=== PATIENT | female | born 1940 | race Caucasian/White ===

== ENCOUNTER → 2016-08-05 | Day surgery (SDC) | payer BC ==
[2016-07-28 11:35] VITALS: Ht 167.6 cm; Wt 65.9 kg
[~2016-08-05] VITALS: Ht 167.6 cm; Wt 65.9 kg
[~2016-08-05] MED LIST: 500ML BSS 0.3ML EPI 1:1000PF IRRIG ONE; ACETAMINOPHEN 325 MG TAB PO PRN; AMVISC PLUS 0.8ML SYRINGE INT OCU ONE; ATROPINE SULFATE 0.1 MG/ML 5ML SYR IV PRN; AcetaZOLAMIDE 250 MG TAB PO SCH; BETAXOLOL HCL 0.25% OP SUSP PER DROP CHARGE OPL SCH; BRIMONIDINE TART 0.2% OP SOLN PER DROP CHARGE ONE; BRIN3SUS OPB; BSS FLUSH ONE; CALC1TAB9 PO; CLOP1TAB15 PO; ENDOCOAT 0.85ML SYRINGE INT OCU ONE; ERGO1CAP41 PO; EpHEDrine SULFATE INJ 50 MG/ML AMP IV PRN; EpINEphrine INJ 1MG/ML AMP 1 MG/ML AMP ONE; IBAN150T PO; LACTATED RINGER'S 1000ML 500 ML IV SCH; LIDOCAINE 4% OP SOLN DROP CHARGE ONE; LIDOCAINE 4% OP SOLN DROP CHARGE OPL SCH; LIDOCAINE HCL 1% MPF 2 ML VIAL ONE; MAGN400T6 PO; MIDAZOLAM HCL 1 MG/ML 2ML VIAL ONE; MISCTAB30 PO; MIX: 4ML BSS 1ML EPI 1:1000 PF INSTIL ONE; MOXIFLOXACIN OPH SOLN PER DROP CHARGE ONE; OCUCOAT 1 ML SOLN IO ONE; POVIDONE-IODINE OP SOLN 30 ML BTL ONE; PRLSR20 PO; PROPARACAINE 0.5% OP SOLN PER DROP CHARGE OPL SCH; TAMO20TA47 PO; TOBRAMYCIN/DEXAMETHASONE OPH OINT PER APPLN CHARGE ONE; VITA1CAP3 PO
--- NOTE | 2016-08-05 08:58 | History & Physical Bridge - [place] ---
H&P Re-Evaluation Bridge Note: I have examined the patient, reviewed the History & Physical and in the interval since the performance of the History & Physical I have noted the following changes of clinical significance: No changes noted
[2016-08-05] MEDS: PHENYLEPHRINE HCL 2.5% OP SOLN PER DROP CHARGE OPL SCH ×2 (10:22→10:27)
[2016-08-05] MEDS: TROPICAMIDE 1% OP SOLN PER DROP CHARGE OPL SCH ×2 (10:23→10:28)
[2016-08-05] MEDS: CYCLOPENTOLATE HCL 1% OP SOLN PER DROP CHARGE OPL SCH ×2 (10:24→10:29)
[2016-08-05] MEDS: MOXIFLOXACIN OPH SOLN PER DROP CHARGE OPL SCH ×2 (10:25→10:35)
--- NOTE | 2016-08-05 11:10 | Discharge Instructions-SurgCtr ---
Discharge Instructions Visit Reason for Visit: Cataract Left Eye Discharge Discharge Diagnosis / Problem: lens implant left eye Discharge Goals Goal(s): Improve function Activity Recommendations Activity Limitations: resume your previous activity Lifting Limitations: no more than 10 pounds Exercise/Sports Limitations: gradually increase as tolerated May Resume Sexual Activity: when tolerated Shower/Bathe: tomorrow Driving or Machine Use: resume 1 day after discharge Anesthesia . Post Anesthesia Instructions: If you have had General Anesthesia or IV Sedation: * Do not drive today. * Resume driving when surgeon permits. * Do not make important decisions or sign legal documents today. * Call surgeon for: 1. Temperature elevations greater than 101 degrees F. 2. Uncontrollable pain. 3. Excessive bleeding. 4. Persistent nausea and vomiting. 5. Medication intolerance (nausea, vomiting or rash). * For nausea and vomiting use only clear liquids such as: tea, soda, bouillon until nausea subsides, then gradually increase diet as tolerated. * If you have any concerns or questions, call your surgeon's office. If physician is unavailable and it is an emergency, call 911 or go to the nearest emergency room. . Instructions / Follow-Up Instructions / Follow-Up ACTIVITY RECOMMENDATIONS: * Light activities. * Mild irritation and blurred vision are common for the first few days. * You may walk outside, read, watch television. * Redness around the white part of the eye is common. MEDICATIONS: Resume previous medications unless instructed otherwise by your surgeon. * Take white Diamox (Acetazolamide) tablet at 1 pm today. Start all eye drops at 1 pm today: * Eye drops (today and tomorrow): Prednisone - one drop in operative eye every 3 hours while awake Ofloxacin - one drop in operative eye every 3 hours while awake Continue Glaucoma drops in right eye as directed SPECIAL CARE INSTRUCTIONS: * Tape plastic shield over eye to sleep at night. Call your doctor at with any concerns or problems. FOLLOW UP VISIT: Follow-up with Dr Boyer at [place] office as scheduled. Diet Recommendations Home Diet: no limitations Procedures Procedures Performed: cataract extraction with lens implant Pending Studies Studies pending at discharge: no Medical Emergencies . Who to Call and When: Medical Emergencies: If at any time you feel your situation is an emergency, please call 911 immediately. . Non-Emergent Contact Non-Emergency issues call your: Warehouse Specialist Call Non-Emergent contact if: your pain is not controlled [phone] . . "Provider Documentation" section prepared by Seven Boyer.
--- NOTE | 2016-08-05 11:11 | [facility] Operative Report ---
Operative Report 1. PREOPERATIVE DIAGNOSIS: Senile nuclear cataract, left eye. 2. POSTOPERATIVE DIAGNOSIS: Senile nuclear cataract, left eye. 3. PROCEDURE: Phacoemulsification of left cataract with posterior chamber lens implant, type Bausch & Lomb, model MI60L, power +17.0 diopters. ANESTHESIA: Local standby. SURGEON: Dr. Boyer. COMPLICATIONS: None. OPERATING TIME: 10 minutes. 4. OPERATION AND FINDINGS: DESCRIPTION OF PROCEDURE: The left pupil was dilated. The anesthetic was administered using a topical technique. The left eye was prepped and draped. A speculum was placed. A clear corneal incision was formed. The chamber was filled with Amvisc Plus and Endocoat. Epinephrine solution was used. A paracentesis was placed. A capsulorrhexis was performed. The nucleus was hydrodissected. The lens was removed with phacoemulsification. Time was 3.01 seconds. The aspiration unit was used to remove the cortex. The capsule was filled with Amvisc Plus. The lens implant was folded and placed into the capsule. The incision was hydrated. The Amvisc was aspirated. The wound was secure. The chamber was deep. The pupil was round. TobraDex ointment and Vigamox solution were placed. The speculum was removed. The patient was returned to the Recovery Room in stable condition. I attest to the content of the Intraoperative Record and any orders documented therein. Any exceptions are noted below. The scribe's documentation has been prepared in my presence, under my direction and personally reviewed by me in its entirety. I confirm that the note above accurately reflects all work, treatment, procedures, and medical decision making performed by me. I personally scribed for Seven Boyer M.D. (DRE) on 08/05/16 at 11:11. Electronically submitted by Nicky Collier ([email or web address]).
[2016-08-05 11:21] VITALS: TEMP 36.5
--- NOTE | 2016-08-05 11:26 | Anesthesia Progress Nt - [facility] ---
Anesthesia Post Op Note Date & Time Aug 05, 2016 at 11:26 Vital Signs Pain Intensity: 0 Vital Signs Past 12 Hours Date Time Temp Pulse Resp B/P Pulse Ox O2 Delivery O2 Flow Rate FiO2 08/05/16 11:21 36.5 60 16 118/61 98 Room Air 08/05/16 10:15 36.5 69 18 137/74 96 Room Air Notes Mental Status: alert / awake / arousable, participated in evaluation Pt Amnestic to Procedure: Yes Nausea / Vomiting: adequately controlled Pain: adequately controlled Airway Patency, RR, SpO2: stable & adequate BP & HR: stable & adequate Hydration State: stable & adequate Anesthetic Complications: no major complications apparent
[2016-08-05 11:35] VITALS: BP 109/61; PULSE 65; O2SAT 97
== END | disposition home or self-care (01) ==
LOC: X.SURG 10:07
PROVIDERS: ATTEND Specialist
DX: H25.12 Age-related nuclear cataract, left eye (principal)

== ENCOUNTER → 2016-08-26 | Outpatient (CLI) | payer BC ==
[~2016-08-26] MED LIST changes: -500ML BSS 0.3ML EPI 1:1000PF IRRIG ONE; -ACETAMINOPHEN 325 MG TAB PO PRN; -AMVISC PLUS 0.8ML SYRINGE INT OCU ONE; -ATROPINE SULFATE 0.1 MG/ML 5ML SYR IV PRN; -AcetaZOLAMIDE 250 MG TAB PO SCH; -BETAXOLOL HCL 0.25% OP SUSP PER DROP CHARGE OPL SCH; -BRIMONIDINE TART 0.2% OP SOLN PER DROP CHARGE ONE; -BRIN3SUS OPB; -BSS FLUSH ONE; -ENDOCOAT 0.85ML SYRINGE INT OCU ONE; -EpHEDrine SULFATE INJ 50 MG/ML AMP IV PRN; -EpINEphrine INJ 1MG/ML AMP 1 MG/ML AMP ONE; -LACTATED RINGER'S 1000ML 500 ML IV SCH; -LIDOCAINE 4% OP SOLN DROP CHARGE ONE; -LIDOCAINE 4% OP SOLN DROP CHARGE OPL SCH; -LIDOCAINE HCL 1% MPF 2 ML VIAL ONE; -MIDAZOLAM HCL 1 MG/ML 2ML VIAL ONE; -MIX: 4ML BSS 1ML EPI 1:1000 PF INSTIL ONE; -MOXIFLOXACIN OPH SOLN PER DROP CHARGE ONE; -OCUCOAT 1 ML SOLN IO ONE; -POVIDONE-IODINE OP SOLN 30 ML BTL ONE; -PROPARACAINE 0.5% OP SOLN PER DROP CHARGE OPL SCH; -TOBRAMYCIN/DEXAMETHASONE OPH OINT PER APPLN CHARGE ONE
== END | disposition home or self-care (01) ==
LOC: C.PAPS 09:46
PROVIDERS: ATTEND Obstetrics & Gynecology
DX: Z12.4 Encounter for screening for malignant neoplasm of cervix (principal); R87.616 Satisfactory cervical smear but lacking transformation zone

== ENCOUNTER → 2016-08-26 | Day surgery (SDC) | payer BC ==
[2016-08-19 15:16] VITALS: Ht 167.6 cm; Wt 65.9 kg
[~2016-08-26] VITALS: Ht 167.6 cm; Wt 65.9 kg
[~2016-08-26] MED LIST changes: +500ML BSS 0.3ML EPI 1:1000PF IRRIG ONE; +ACETAMINOPHEN 325 MG TAB PO PRN; +AMVISC PLUS 0.8ML SYRINGE INT OCU ONE; +ATROPINE SULFATE 0.1 MG/ML 5ML SYR IV PRN; +AcetaZOLAMIDE 250 MG TAB PO SCH; +BETAXOLOL HCL 0.25% OP SUSP PER DROP CHARGE OPR SCH; +BRIMONIDINE TART 0.2% OP SOLN PER DROP CHARGE ONE; +BSS FLUSH ONE; +ENDOCOAT 0.85ML SYRINGE INT OCU ONE; +EpINEphrine INJ 1MG/ML AMP 1 MG/ML AMP ONE; +LACTATED RINGER'S 1000ML 500 ML IV SCH; +LIDOCAINE 4% OP SOLN DROP CHARGE ONE; +LIDOCAINE 4% OP SOLN DROP CHARGE OPR SCH; +LIDOCAINE HCL 1% MPF 2 ML VIAL ONE; +MIDAZOLAM HCL 1 MG/ML 2ML VIAL ONE; +MIX: 4ML BSS 1ML EPI 1:1000 PF INSTIL ONE; +MOXIFLOXACIN OPH SOLN PER DROP CHARGE ONE; +OCUCOAT 1 ML SOLN IO ONE; +POVIDONE-IODINE OP SOLN 30 ML BTL ONE; +PROPARACAINE 0.5% OP SOLN PER DROP CHARGE OPR SCH; +TOBRAMYCIN/DEXAMETHASONE OPH OINT PER APPLN CHARGE ONE
[2016-08-26] MEDS: PHENYLEPHRINE HCL 2.5% OP SOLN PER DROP CHARGE OPR SCH ×2 (06:39→06:44)
[2016-08-26] MEDS: TROPICAMIDE 1% OP SOLN PER DROP CHARGE OPR SCH ×2 (06:40→06:45)
[2016-08-26] MEDS: CYCLOPENTOLATE HCL 1% OP SOLN PER DROP CHARGE OPR SCH ×2 (06:41→06:46)
[2016-08-26] MEDS: MOXIFLOXACIN OPH SOLN PER DROP CHARGE OPR SCH ×2 (06:42→06:52)
--- NOTE | 2016-08-26 07:15 | Discharge Instructions-SurgCtr ---
Discharge Instructions Visit Reason for Visit: Cataract Right Eye Discharge Discharge Diagnosis / Problem: lens implant left lens Discharge Goals Goal(s): Improve function Activity Recommendations Activity Limitations: resume your previous activity Lifting Limitations: no more than 10 pounds Exercise/Sports Limitations: gradually increase as tolerated May Resume Sexual Activity: when tolerated Shower/Bathe: tomorrow Driving or Machine Use: resume 1 day after discharge Anesthesia . Post Anesthesia Instructions: If you have had General Anesthesia or IV Sedation: * Do not drive today. * Resume driving when surgeon permits. * Do not make important decisions or sign legal documents today. * Call surgeon for: 1. Temperature elevations greater than 101 degrees F. 2. Uncontrollable pain. 3. Excessive bleeding. 4. Persistent nausea and vomiting. 5. Medication intolerance (nausea, vomiting or rash). * For nausea and vomiting use only clear liquids such as: tea, soda, bouillon until nausea subsides, then gradually increase diet as tolerated. * If you have any concerns or questions, call your surgeon's office. If physician is unavailable and it is an emergency, call 911 or go to the nearest emergency room. . Instructions / Follow-Up Instructions / Follow-Up ACTIVITY RECOMMENDATIONS: * Light activities. * Mild irritation and blurred vision are common for the first few days. * You may walk outside, read, watch television. * Redness around the white part of the eye is common. MEDICATIONS: Resume previous medications unless instructed otherwise by your surgeon. * Take white Diamox (Acetazolamide) tablet at 1 pm today. Start all eye drops at 1 pm today: * Eye drops (today and tomorrow): Prednisone - one drop in operative eye every 3 hours while awake Ofloxacin - one drop in operative eye every 3 hours while awake SPECIAL CARE INSTRUCTIONS: * Tape plastic shield over eye to sleep at night. Call your doctor at with any concerns or problems. FOLLOW UP VISIT: Follow-up with Dr Boyer at [place] office as scheduled. Diet Recommendations Home Diet: no limitations Procedures Procedures Performed: Right Cataract Phacoemulsification With Intraocular Lens Implant Pending Studies Studies pending at discharge: no Medical Emergencies . Who to Call and When: Medical Emergencies: If at any time you feel your situation is an emergency, please call 911 immediately. . Non-Emergent Contact Non-Emergency issues call your: Texturing Machine Fixer Call Non-Emergent contact if: your pain is not controlled [phone] . . "Provider Documentation" section prepared by Seven Boyer.
[2016-08-26 07:17] VITALS: TEMP 36.9
--- NOTE | 2016-08-26 07:17 | [facility] Operative Report ---
Operative Report Date of Service Aug 26, 2016. Operative Report 1. PREOPERATIVE DIAGNOSIS: Senile nuclear cataract, righ eye. 2. POSTOPERATIVE DIAGNOSIS: Senile nuclear cataract, right eye. 3. PROCEDURE: Phacoemulsification of right cataract with posterior chamber lens implant, type Bausch & Lomb, model MI60L, power +17.0 diopters. ANESTHESIA: Local standby. SURGEON: Dr. Boyer. COMPLICATIONS: None. OPERATING TIME: 10 minutes. 4. OPERATION AND FINDINGS: DESCRIPTION OF PROCEDURE: The right pupil was dilated. The anesthetic was administered using a topical technique. The right eye was prepped and draped. A speculum was placed. A clear corneal incision was formed. The chamber was filled with Amvisc Plus and Endocoat. Epinephrine solution was used. A paracentesis was placed. A capsulorrhexis was performed. The nucleus was hydrodissected. The lens was removed with phacoemulsification. Time was 2.83 seconds. The aspiration unit was used to remove the cortex. The capsule was filled with Amvisc Plus. The lens implant was folded and placed into the capsule. The incision was hydrated. The Amvisc was aspirated. The wound was secure. The chamber was deep. The pupil was round. TobraDex ointment and Vigamox solution were placed. The speculum was removed. The patient was returned to the Recovery Room in stable condition. I attest to the content of the Intraoperative Record and any orders documented therein. Any exceptions are noted below. The scribe's documentation has been prepared in my presence, under my direction and personally reviewed by me in its entirety. I confirm that the note above accurately reflects all work, treatment, procedures, and medical decision making performed by me. I personally scribed for Seven Boyer M.D. (DRE) on 08/26/16 at 07:17. Electronically submitted by Nicky Collier ([email or web address]).
--- NOTE | 2016-08-26 07:58 | Anesthesia Progress Nt - [facility] ---
Anesthesia Post Op Note Date & Time Aug 26, 2016 at 07:57 Vital Signs Vital Signs Past 12 Hours Date Time Temp Pulse Resp B/P Pulse Ox O2 Delivery O2 Flow Rate FiO2 08/26/16 07:17 36.9 64 16 105/67 95 Room Air 08/26/16 06:26 36.5 77 16 120/64 95 Room Air Notes Mental Status: alert / awake / arousable, participated in evaluation Pt Amnestic to Procedure: Yes Nausea / Vomiting: adequately controlled Pain: adequately controlled Airway Patency, RR, SpO2: stable & adequate BP & HR: stable & adequate Hydration State: stable & adequate Anesthetic Complications: no major complications apparent
[2016-08-26 08:03] VITALS: BP 121/69; PULSE 61; O2SAT 97
== END | disposition home or self-care (01) ==
LOC: X.SURG 06:08
PROVIDERS: ATTEND Specialist
DX: H25.11 Age-related nuclear cataract, right eye (principal); M19.90 Unspecified osteoarthritis, unspecified site; Z98.42 Cataract extraction status, left eye; Z86.73 Personal history of transient ischemic attack (TIA), and cerebral infarction without residual deficits; Z79.02 Long term (current) use of antithrombotics/antiplatelets; Z12.4 Encounter for screening for malignant neoplasm of cervix; R87.616 Satisfactory cervical smear but lacking transformation zone

== ENCOUNTER → 2016-09-01 | Outpatient (CLI) | payer BC ==
[~2016-09-01] MED LIST changes: -500ML BSS 0.3ML EPI 1:1000PF IRRIG ONE; -ACETAMINOPHEN 325 MG TAB PO PRN; -AMVISC PLUS 0.8ML SYRINGE INT OCU ONE; -ATROPINE SULFATE 0.1 MG/ML 5ML SYR IV PRN; -AcetaZOLAMIDE 250 MG TAB PO SCH; -BETAXOLOL HCL 0.25% OP SUSP PER DROP CHARGE OPR SCH; -BRIMONIDINE TART 0.2% OP SOLN PER DROP CHARGE ONE; -BSS FLUSH ONE; -ENDOCOAT 0.85ML SYRINGE INT OCU ONE; -EpINEphrine INJ 1MG/ML AMP 1 MG/ML AMP ONE; -LACTATED RINGER'S 1000ML 500 ML IV SCH; -LIDOCAINE 4% OP SOLN DROP CHARGE ONE; -LIDOCAINE 4% OP SOLN DROP CHARGE OPR SCH; -LIDOCAINE HCL 1% MPF 2 ML VIAL ONE; -MIDAZOLAM HCL 1 MG/ML 2ML VIAL ONE; -MIX: 4ML BSS 1ML EPI 1:1000 PF INSTIL ONE; -MOXIFLOXACIN OPH SOLN PER DROP CHARGE ONE; -OCUCOAT 1 ML SOLN IO ONE; -POVIDONE-IODINE OP SOLN 30 ML BTL ONE; -PROPARACAINE 0.5% OP SOLN PER DROP CHARGE OPR SCH; -TOBRAMYCIN/DEXAMETHASONE OPH OINT PER APPLN CHARGE ONE
[2016-09-01 13:54] LABS: MEAN CELL VOLUME 89.4 fL (80-100); MEAN CORPUSCULAR HEMOGLOBIN 30.9 pg (25-34); MEAN CORPUSCULAR HGB CONC 34.5 g/dl (32-36); PLATELET COUNT 184 K/uL (130-400); RED BLOOD COUNT 4.92 M/uL (4.2-5.4)
[2016-09-01 14:01] LABS: ALT/SGPT 19 U/L (12-78); BLOOD UREA NITROGEN 25 mg/dl (7-18); BUN/CREATININE RATIO 31.1 (10-20); CALCIUM 8.6 mg/dl (8.5-10.1); CARBON DIOXIDE 27 mmol/L (21-32); CHLORIDE 106 mmol/L (98-107); GLUCOSE 95 mg/dl (70-99); SODIUM 141 mmol/L (136-145)
[2016-09-01 14:12] LABS: ALB/GLOB RATIO 1.1 (0.9-2); ALKALINE PHOSPHATASE 68 U/L (45-117); AST/SGOT 14 U/L (15-37); CHOLESTEROL 166 mg/dl (0-200); HDL CHOLESTEROL 56 mg/dl; LDL CHOLESTEROL CALCULATED 88 mg/dl; TRIGLYCERIDES 112 mg/dl (0-150); VERY LOW DENSITY LIPOPROT CALC 22 mg/dl
== END | disposition home or self-care (01) ==
LOC: C.LABBC 11:44
PROVIDERS: ATTEND Internal Medicine
DX: G45.9 Transient cerebral ischemic attack, unspecified (principal)

== ENCOUNTER → 2016-09-22 | Outpatient (CLI) | payer BC ==
[2014-09-11 13:00] VITALS: BP 110/72; PULSE 72
[~2016-09-22] MED LIST changes: -ERGO1CAP41 PO; +ERGO500011 PO; -TAMO20TA47 PO; +TAMO20TA9 PO
[2016-09-22 13:05] VITALS: BP 107/61; PULSE 65; TEMP 37; O2SAT 94
--- NOTE | 2016-09-22 16:39 | Radiation Oncology Follow-Up ---
Radiation Oncology Follow-Up Date of Visit Sep 22, 2016. Reason For Visit Annual follow-up Radiation Completion Date Left Mammosite - 01/26/14 Diagnosis (1) Breast cancer of upper-outer quadrant of left female breast Status: Resolved Onset Date: 12/20/2013 Histology Subtype: ductal Stage: l Permanent Comment: Abnormal left breast mammogram 11/17/2013 status post ultrasound-guided biopsy 12/20/2013 revealing invasive adenocarcinoma Estrogen receptor positive, progesterone receptor positive, and HER-2/oleg negative Status post lumpectomy and sentinel lymph node biopsy 12/16/2013 revealing infiltrating ductal carcinoma stage pT1c [id number] Status post completion of radiation therapy utilizing MammoSite therapy completed 01/26/2014 received 3400 cGy Status post MRI guided biopsy of the left breast 06/17/2016, benign Last Edited By: Dorcas Moore on Sep 22, 2016 16:30 Interim History She has noted no changes to her breasts. There've been no masses or tenderness no change of the axilla. She's had no swelling of her arm. She did have a MRI of both breasts 11/18/2015. This was given a category 3 probably benign. There was a stable 2 mm enhancing focus in the 9:30 anterior right breast which is probably benign. However longer stability as needed and therefore another follow-up rest MRI in 6 months was recommended. Continuation of annual screening mammogram was recommended. On 06/01/2016 she had recheck MRI of both breasts. This showed increasingly conspicuous subtle non-mass enhancement within the left breast anterior and slightly superior to the lumpectomy bed, extending towards the nipple over 3.6 cm, this could represent posttreatment change. However DCIS cannot be completely excluded and further evaluation with a left breast MRI guided biopsy was recommended. Stable 3 mm enhancing focus within the anterior 9:30 right breast that is unchanged for at least 1 year and most likely is benign. 2 years of stability are needed to confirm and pending benign pathology results the left breast at the time of MRI guided biopsy, another 12 month follow-up breast MRI as recommended. The MRI guided biopsy was carried out on 06/17/2016. This showed benign breast tissue. Negative for DCIS and invasive carcinoma. Case [id number]. Allergies Coded Allergies: Beta Adrenergic Blockers (Verified Allergy, Unknown, "BLACKED OUT", 08/26/16 ) Lactose Intolerance (Verified Allergy, Unknown, GI SYMPTOMS, 08/26/16) Morphine (Verified Adverse Reaction, Intermediate, GI SYMPTOMS, 08/26/16) Home Medications Scheduled Calcium Citrate-Vitamin D (Citracal + D3 Maximum), 1 TAB PO BID Clopidogrel (Plavix), 75 MG PO HS Ergocalciferol (Vitamin D 07868 Unit), 1 TAB PO WK Ibandronate Sodium (Boniva), 1 TAB PO MONTHLY Magnesium Oxide (Mag-Ox), 400 MG PO QAM Misc Natural Products (Osteo Bi-Flex Joint Shiel), 1 TAB PO BID Omeprazole (Prilosec), 20 MG PO QAM Tamoxifen (Nolvadex), 20 MG PO QAM Vitamin E (E1000), 1 CAP PO QAM Review of Systems Gastrointestinal: Symptoms: WNL Oral: Symptoms: No Problems Respiratory: Symptoms: WNL Urinary: Symptoms: WNL Skin: Symptoms: No Problems Breast: Right Upper Arm Measurement: 27.0 Right Mid Arm Measurement: 22.4 Right Wrist Measurement: 14.8 Left Upper Arm Measurement: 26.9 Left Mid Arm Measurement: 24.2 Left Wrist Measurement: 15.1 Arm Dominence: Left Patient Cosmetic Evaluation: Good Physical Exam Vital Signs Date Time Temp Pulse Resp B/P Pulse Ox O2 Delivery O2 Flow Rate FiO2 09/22/16 13:05 37.0 65 16 107/61 94 Pain: Pain Location: None Patient Pain Scale: 0 - 10 Initial Pain Intensity: 0.0 Fatigue: None General Appearance: no apparent distress Eyes: normal inspection, EOMI ENT: normal ENT inspection, hearing grossly normal Neck: no adenopathy, thyroid normal Respiratory/Chest: lungs clear, no respiratory distress, no accessory muscle use Breast: Breast examination reveals well-healed incision of the left breast. There is also a healed puncture wound above the incision line. There are no masses or tenderness and no axillary adenopathy. There are mild fibrous changes in the area of the incision. There are no skin retractions or nipple changes. There is no telangiectasia. Using the [place] score cosmesis she has a in excellent outcome. The right breast showed no masses or tenderness and no axillary adenopathy. Cardiovascular: regular rate, rhythm, no gallop, no murmur Abdomen: non tender, soft Extremities: no pedal edema Neurologic/Psychiatric: no motor/sensory deficits, alert, normal mood/affect Skin: warm/dry Lymphatic: no adenopathy Laboratory Studies Test 09/01/16 11:47 White Blood Count 6.70 K/uL (4.8-10.8) Red Blood Count 4.92 M/uL (4.2-5.4) Hemoglobin 15.2 g/dL (12.0-16.0) Hematocrit 44.0 % (37-47) Mean Corpuscular Volume 89.4 fL (80-100) Mean Corpuscular Hemoglobin 30.9 pg (25-34) Mean Corpuscular Hemoglobin Concent 34.5 g/dl (32-36) RDW Standard Deviation 40.1 fL (36.4-46.3) RDW Coefficient of Variation 12.4 % (11.5-14.5) Platelet Count 184 K/uL (130-400) Mean Platelet Volume 11.0 fL (7.4-10.4) Sodium Level 141 mmol/L (136-145) Potassium Level 4.0 mmol/L (3.5-5.1) Chloride Level 106 mmol/L (98-107) Carbon Dioxide Level 27 mmol/L (21-32) Anion Gap 8.0 mmol/L (3-11) Blood Urea Nitrogen 25 mg/dl (7-18) Creatinine 0.80 mg/dl (0.60-1.20) Estimated GFR () 83.6 Estimated GFR (Non- 72.1 BUN/Creatinine Ratio 31.1 (10-20) Random Glucose 95 mg/dl (70-99) Calcium Level 8.6 mg/dl (8.5-10.1) Total Bilirubin 0.3 mg/dl (0.2-1) Aspartate Amino Transferase (AST) 14 U/L (15-37) Alanine Aminotransferase (ALT) 19 U/L (12-78) Alkaline Phosphatase 68 U/L (45-117) Total Protein 7.0 gm/dl (6.4-8.2) Albumin 3.7 gm/dl (3.4-5.0) Globulin 3.3 gm/dl (2.5-4.0) Albumin/Globulin Ratio 1.1 (0.9-2) Triglycerides Level 112 mg/dl (0-150) Cholesterol Level 166 mg/dl (0-200) HDL Cholesterol 56 mg/dl LDL Cholesterol, Calculated 88 mg/dl VLDL Cholesterol, Calculated 22 mg/dl Cholesterol/HDL Ratio 3.0 Thyroid Stimulating Hormone (TSH) 1.610 uIu/ml (0.300-4.500) Additional Studies Mammography and MRIs as reviewed above. Assessment & Plan Plan: She'll be due for bilateral mammography in November. She'll be due for the recommended breast MRI in May. Orders were written and the studies were scheduled. Continue regular follow-up with Dr. Jean and her primary care physician. She continues on tamoxifen. We asked her to return to our office in 1 year. Total Time In Follow-Up I spent 20 minutes speaking to the patient performing examination. I spent 15 minutes reviewing information and completing this note. Copy To James Mahoney M.D.; Dixon Jean M.D.
== END | disposition home or self-care (01) ==
LOC: C.ONC 12:49
PROVIDERS: ATTEND Physician Assistant Medical
DX: Z08 Encounter for follow-up examination after completed treatment for malignant neoplasm (principal); Z92.3 Personal history of irradiation; Z85.3 Personal history of malignant neoplasm of breast

== ENCOUNTER → 2016-11-04 | Outpatient (CLI) | payer BC ==
--- NOTE | 2016-11-05 08:15 | MAMMOGRAPHY REPORT ---
BILATERAL DIGITAL DIAGNOSTIC MAMMOGRAM TOMOSYNTHESIS WITH CAD AND TARGETED LEFT ULTRASOUND: 7 CLINICAL HISTORY: 75-year-old woman with a personal history of left breast cancer status post breast conservation therapy with lumpectomy performed December 2013. She presents for annual bilateral mammog job as well as reports new pain and lump in the lateral left breast. The patient reports she had felt an "egg sized" area of thickening which she can no longer feel. TECHNIQUE: Bilateral CC and MLO 2-D digital and tomosynthesis images were obtained. Current study was also evaluated with a Computer Aided Detection (CAD) system. COMPARISON: Comparison is made to exams dated: 06/17/2016 mammogram, 09/26/2015 mammogram, 11/12/2014 mammogram, 04/30/2014 mammogram, 11/17/2013 mammogram, and 08/23/2012 mammogram - [facility]. BREAST COMPOSITION: The tissue of both breasts is heterogeneously dense, which may obscure small ma sses. FINDINGS: A truncal skin palpable marker overlies the upper outer middle one third of the left breas t, denoting the area of pain and thickening pointed out by the patient. There is expected data center solutions architect ural distortion in the upper outer posterior left breast, from prior lumpectomy. A stable metallic biopsy marker in the anterior subareolar left breast from prior benign MRI guided biopsy. No new alejo spicious mass, architectural distortion or cluster of microcalcifications is seen. Targeted ultrasound was performed throughout the lateral left breast in the areas of pain pointed ou t by the patient. She cannot feel the "egg sized" lump anymore to point out. there is a vertically oriented 7 x 2 cm ridge along the lateral left breast, 4 cm from the nipple. The patient reported p ain while scanning over the 2:00 axis. A linear hypoechoic scar is identified in the 3:[address] 4 cm from the nipple and extending laterally. No suspicious solid or cystic mass is seen. IMPRESSION: ACR BI-RADS CATEGORY 0: INCOMPLETE EVALUATION: NEED ADDITIONAL IMAGING EVALUATION, TAR GETED ULTRASOUND ACR BI-RADS CATEGORY 0: INCOMPLETE EVALUATION: NEED ADDITIONAL IMAGING EVALUATION 1. Stable bilateral mammograms, without definite mammographic evidence of malignancy. 2. No suspicious sonographic abnormality to explain the pain and thickening in the lateral left carline ast, described by the patient. Clinical follow-up is recommended with the patient's breast surgeon, and she reports she has an appointment tomorrow. Also the patient is due for a breast MRI to follo w up the prior MRI guided biopsy performed in May 2016. Therefore recommend follow-up breast M RI in November 2016. These results and recommendations were discussed with the patient at the time of the exam. Approximately 10% of breast cancers are not detected with mammography. A negative mammographic repor t should not delay biopsy if a clinically suggestive mass is present. Sandra Ramírez M.D. ay/:11/04/2016 15:32:04 Director Of Technology: Margarita RICARDO(R)(M), [facility] letter sent: Addl Imaging 0 BI-RADS Code: ACR BI-RADS Category 0: Incomplete Evaluation: Need Additional Imaging Evaluation Ul trasound BI-RADS: ACR BI-RADS Category 0: Incomplete Evaluation: Need Additional Imaging Evaluation
== END | disposition home or self-care (01) ==
LOC: C.MAMM 13:28
PROVIDERS: ATTEND Internal Medicine
DX: N63 Unspecified lump in breast (principal); N64.4 Mastodynia; Z85.3 Personal history of malignant neoplasm of breast

== ENCOUNTER → 2016-12-03 | Outpatient (CLI) | payer BC ==
[2016-12-03 12:45] LABS: BLOOD UREA NITROGEN 23 mg/dl (7-18); CREATININE 0.75 mg/dl (0.60-1.20)
== END | disposition home or self-care (01) ==
LOC: C.LAB1850 10:37
PROVIDERS: ATTEND Physician Assistant Medical
DX: I10 Essential (primary) hypertension (principal); C50.919 Malignant neoplasm of unspecified site of unspecified female breast

== ENCOUNTER → 2016-12-14 | Outpatient (CLI) | payer BC ==
[~2016-12-14] MED LIST changes: +GADAVIST IV PRN
--- NOTE | 2016-12-15 14:14 | MAMMOGRAPHY REPORT ---
BREAST MRI OF BOTH BREASTS : 12/14/2016 CLINICAL HISTORY: 76 year old woman with a personal history of left breast cancer status post breast conservation therapy in 2013. She presents for follow-up after a benign MRI guided biopsy in the lef t breast and also to evaluate for reported lump near the lumpectomy site in the left breast. COMPARISON: Comparison is made to exams dated: 11/04/2016 ultrasound, 11/04/2016 mammogram, 06/17/2016 mammogram, 06/17/2016 MRI biopsy, 06/01/2016 breast MRI, and 11/18/2015 breast MRI - [facility]. TECHNIQUE: Using a 1.5 Della magnet and dedicated breast coil, multisequence axial images were obtain ed through the breasts. After uneventful IV administration of 6.7 mL of Gadavist, dynamic multiphase contrast-enhanced axial images, and sagittal postcontrast were obtained. Temporal subtraction axial images and 3-D MIP images are provided. Everything was then reviewed on a 3-D workstation, [employer]. FINDINGS: Right breast: There is no new suspicious enhancing mass, suspicious solid mass enhancement, focal are a of architectural distortion or suspicious kinetics within the right breast. No focal skin thickeni ng or nipple retraction. No suspicious right axillary lymphadenopathy. Left breast: There is expected architectural distortion with postsurgical changes and areas of suscep tibility artifact in the 3:00 to 4:00 middle to posterior left breast, at the site of prior lumpectom y. There is susceptibility artifact in the anterior subareolar left breast denoting a biopsy marker clip from recent benign MRI guided biopsy. There is decreased non mass enhancement throughout the le ft breast when compared to the prior MRI, particularly in the region of the biopsy marker. Near the surgical site in the middle to posterior lateral left breast, there is no focal skin thickening. No new suspicious mass is identified. Overall, no suspicious mass, non-mass enhancement, unexpected arc hitectural distortion or suspicious kinetics are seen in the left breast. The retromammary fat is in tact. No suspicious left axillary lymphadenopathy. IMPRESSION: ACR BI-RADS CATEGORY 2: BENIGN 1. Expected post treatment and post biopsy changes in the left breast. No MRI evidence of malignanc y bilaterally. 2. No suspicious MRI abnormality near the surgical site in the lateral left breast to explain the trey mpiness described by the patient. Therefore, clinical follow-up is recommended, as biopsy of a clini tripp suspicious mass should not be precluded by negative imaging. 3. Otherwise, continue annual screening schedule. The patient will receive written notification of the results. Sanrda Ramírez M.D. ay/:12/14/2016 16:34:11 Phone Banker: sales planning coordinator, [facility] letter sent: Normal 1/2 BI-RADS Code: ACR BI-RADS Category 2: Benign
== END | disposition home or self-care (01) ==
LOC: C.MRI 11:36
PROVIDERS: ATTEND Physician Assistant Medical
DX: C50.919 Malignant neoplasm of unspecified site of unspecified female breast (principal); N63 Unspecified lump in breast

== ENCOUNTER → 2017-06-24 | Outpatient (CLI) | payer BC ==
[~2017-06-24] MED LIST changes: -GADAVIST IV PRN
[2017-06-24 15:42] LABS: BLOOD UREA NITROGEN 25 mg/dl (7-18); CREATININE 0.75 mg/dl (0.60-1.20)
== END | disposition home or self-care (01) ==
LOC: C.LAB 14:22
PROVIDERS: ATTEND Psychiatry & Neurology Neurology
DX: D32.0 Benign neoplasm of cerebral meninges (principal)

== ENCOUNTER → 2017-06-25 | Outpatient (CLI) | payer BC ==
[~2017-06-25] MED LIST changes: +GADAVIST IV PRN
--- NOTE | 2017-06-25 10:19 | DIAGNOSTIC IMAGING REPORT ---
Brain MRI WITH AND WITHOUT CONTRAST HISTORY: Follow-up CEREBRAL MENINGIOMA TECHNIQUE: Multiplanar multisequence MRI of the brain was performed both before and after the intravenous administration of contrast. COMPARISON STUDY: Brain MRI 09/18/2008. FINDINGS: No areas of restricted diffusion to suggest acute infarction within the brain parenchyma. The midline structures are intact. No hematoma or midline shift. Mild atrophic changes within the brain. The major vascular flow-voids at the skull base are well-maintained. Paranasal sinuses and mastoid air cells are clear. Interval decrease in size in the T2 hyperintense enhancing left parafalcine lesion within the high convexity. This measures 8 x 8 x 3 mm, previously measuring 1.4 x 1.0 x 0.6 cm. IMPRESSION: Interval decrease in size in the left parafalcine meningioma. No acute intracranial abnormality. Electronically signed by: Theodore Bolden M.D. 06/25/2017 10:18 AM Dictated Date/Time: 06/25/2017 10:13 AM
== END | disposition home or self-care (01) ==
LOC: C.MRI 09:02
PROVIDERS: ATTEND Psychiatry & Neurology Neurology
DX: D32.0 Benign neoplasm of cerebral meninges (principal)

== ENCOUNTER → 2017-08-06 | Outpatient (CLI) | payer BC ==
[~2017-08-06] MED LIST changes: -GADAVIST IV PRN
--- NOTE | 2017-08-06 12:52 | DIAGNOSTIC IMAGING REPORT ---
L RIBS UNILATERAL MIN 2 VIEWS HISTORY: 76 years-old Female S20.219A Rib [id number] acute left-sided rib pain COMPARISON: Chest radiographs 11/08/2012 TECHNIQUE: PA view the chest with 4 views of the left ribs FINDINGS: Cardiomediastinal and hilar silhouettes are within normal limits. Mild biapical pleural-parenchymal scarring without pneumothorax, pleural effusion or focal airspace consolidation. Minimal left basilar atelectasis. Surgical clips project of the left axilla. No definite acute displaced rib fracture identified. IMPRESSION: 1. No acute process of the chest. 2. No acute displaced rib fracture identified. The above report was generated using voice recognition software. It may contain grammatical, syntax or spelling errors. Electronically signed by: Scar Crump M.D. 08/06/2017 12:51 PM Dictated Date/Time: 08/06/2017 12:47 PM
== END | disposition home or self-care (01) ==
LOC: C.RAD 12:16
PROVIDERS: ATTEND Physician Assistant Medical
DX: S20.219A Contusion of unspecified front wall of thorax, initial encounter (principal); X58.XXXA Exposure to other specified factors, initial encounter

== ENCOUNTER → 2017-09-06 | Outpatient (CLI) | payer BC ==
[2017-09-06 15:51] LABS: BASO % 0.4 %; BASO ABS # 0.03 K/uL (0-0.2); EOS % 2.5 %; EOS ABS # 0.18 K/uL (0-0.5); HEMATOCRIT 41.5 % (37-47); HEMOGLOBIN 14.6 g/dL (12.0-16.0); IG# 0.02 K/uL (0.00-0.02); LYMPH % 37.8 %; LYMPH ABS # 2.75 K/uL (1.2-3.4); MEAN CELL VOLUME 87.6 fL (80-100); MEAN CORPUSCULAR HEMOGLOBIN 30.8 pg (25-34); MEAN CORPUSCULAR HGB CONC 35.2 g/dl (32-36); MEAN PLATELET VOLUME 10.5 fL (7.4-10.4); MONO % 4.5 %; MONO ABS # 0.33 K/uL (0.11-0.59); NEUT % 54.5 %; NEUT ABS # 3.97 K/uL (1.4-6.5); PLATELET COUNT 183 K/uL (130-400); RED CELL DISTRIBUTION WIDTH CV 12.6 % (11.5-14.5); RED CELL DISTRIBUTION WIDTH SD 40.6 fL (36.4-46.3); WHITE BLOOD COUNT 7.28 K/uL (4.8-10.8)
[2017-09-06 16:24] LABS: ALBUMIN 3.5 gm/dl (3.4-5.0); ALT/SGPT 19 U/L (12-78); BLOOD UREA NITROGEN 18 mg/dl (7-18); CARBON DIOXIDE 25 mmol/L (21-32); CHOLESTEROL 172 mg/dl (0-200); CREATININE 0.74 mg/dl (0.60-1.20); GLUCOSE 114 mg/dl (70-99); POTASSIUM 3.8 mmol/L (3.5-5.1); SODIUM 139 mmol/L (136-145)
[2017-09-06 16:34] LABS: ALKALINE PHOSPHATASE 72 U/L (45-117); AST/SGOT 15 U/L (15-37); LDL CHOLESTEROL CALCULATED 82 mg/dl; TOTAL PROTEIN 6.8 gm/dl (6.4-8.2)
== END | disposition home or self-care (01) ==
LOC: C.LAB 14:10
PROVIDERS: ATTEND Podiatrist Foot & Ankle Surgery
DX: I10 Essential (primary) hypertension (principal); M81.0 Age-related osteoporosis without current pathological fracture

== ENCOUNTER → 2017-11-12 | Outpatient (CLI) | payer BC ==
--- NOTE | 2017-11-15 15:08 | MAMMOGRAPHY REPORT ---
BILATERAL DIGITAL SCREENING MAMMOGRAM TOMOSYNTHESIS WITH CAD: 11/12/2017 CLINICAL HISTORY: Routine screening. Patient has no complaints. TECHNIQUE: Breast tomosynthesis in addition to standard 2D mammography was performed. Current study was also evaluated with a Computer Aided Detection (CAD) system. COMPARISON: Comparison is made to exams dated: 12/14/2016 breast MRI, 11/04/2016 ultrasound, 11/04/2016 mammogram, 06/17/2016 mammogram, 11/12/2014 mammogram, and 04/30/2014 mammogram - [facility]. BREAST COMPOSITION: The tissue of both breasts is heterogeneously dense, which may obscure small mas ses. FINDINGS: No suspicious masses, calcifications, or areas of architectural distortion are noted in ei ther breast. There has been no significant interval change compared to prior exams. There are stable postsurgical changes in the left upper outer quadrant from prior lumpectomy. Surgical clips are als o noted in the left axillary region. A biopsy clip is noted within the left anterior breast. Scatte red bilateral benign-appearing calcifications are not significantly changed. IMPRESSION: ACR BI-RADS CATEGORY 2: BENIGN There is no mammographic evidence of malignancy. A 1 year screening mammogram is recommended. The pa tient will receive written notification of the results. Approximately 10% of breast cancers are not detected with mammography. A negative mammographic report should not delay biopsy if a clinically suggestive mass is present. Ela Austin M.D. /:11/12/2017 16:44:40 Clear Coat Sprayer: Daniella RICARDO(Ko)(Blaze), [facility] letter sent: Normal 1/2 BI-RADS Code: ACR BI-RADS Category 2: Benign
== END | disposition home or self-care (01) ==
LOC: C.MAMM 14:36
PROVIDERS: ATTEND Internal Medicine
DX: Z12.31 Encounter for screening mammogram for malignant neoplasm of breast (principal); Z85.3 Personal history of malignant neoplasm of breast

== ENCOUNTER 2025-04-26 05:55 | Observation (INO) ==
--- NOTE | 2025-03-22 15:26 | PAT Medication Instructions ---
Medication Instructions Date of Service March 22, 2025 Home Medications Medication Instructions Recorded denosumab 60 mg/mL subcutaneous 60 mg subcut Q6MO #1 mL 07/19/24 syringe (Prolia) nystatin-triamcinolone 100,000 See Rx Instructions topical TID 07/26/24 unit/g-0.1 % topical cream PRN chronic vulvitis #30 grams ergocalciferol (vitamin D2) 1,250 50,000 unit PO WEEKLY #12 caps 08/11/24 mcg (50,000 unit) capsule clopidogrel 75 mg tablet (Plavix) 75 mg PO PM #90 tabs 10/25/24 Medication List: oysbvmgo-[id number] 8 mg-folic 400 mcg-K 50 mcg-lutein 300 mcg tablet (Centrum Silver Women) 1 tab PO QAM acetaminophen 500 mg capsule 1,000 mg PO DIRECTED PRN Pain latanoprost 0.005 % eye drops 1 drp ophthalmic (eye) PM glucosamine-chondroitin 250 mg-200 mg tablet (Osteo Bi-Flex) 1 tab PO BID tamoxifen 20 mg tablet 20 mg PO QAM ascorbic acid (vitamin C) 1,000 mg capsule 1 g PO QPM roflumilast 0.3 % topical foam (Zoryve) 1 applic topical UD denosumab 60 mg/mL subcutaneous syringe (Prolia) 60 mg subcut Q6MO nystatin-triamcinolone 100,000 unit/g-0.1 % topical cream See Rx Instructions topical TID PRN ergocalciferol (vitamin D2) 1,250 mcg (50,000 unit) capsule 50,000 unit PO WEEKLY clopidogrel 75 mg tablet (Plavix) 75 mg PO PM hydrocortisone acetate 25 mg rectal suppository (Anusol-HC) 25 mg WA DAILY PRN omeprazole 20 mg capsule,delayed release 20 mg PO QAM MEDICATION INSTRUCTIONS: Continue as directed hydrocortisone acetate 25 mg rectal suppository (Anusol-HC) 25 mg WA DAILY PRN ( do not apply after bathing prior to surgery) roflumilast 0.3 % topical foam (Zoryve) 1 applic topical UD (do not apply after bathing prior to surgery) denosumab 60 mg/mL subcutaneous syringe (Prolia) 60 mg subcut Q6MO latanoprost 0.005 % eye drops 1 drp ophthalmic (eye) PM nystatin-triamcinolone 100,000 unit/g-0.1 % topical cream See Rx Instructions topical TID PRN (do not apply after bathing prior to surgery) ASK your surgeon for instructions tamoxifen 20 mg tablet 20 mg PO QAM ASK your prescriber and surgeon clopidogrel 75 mg tablet (Plavix) 75 mg PO PM (for spinal anesthesia: will need to hold Plavix/clopidogrel for at least 7 days prior to surgery) STOP taking 2 weeks before surgery glucosamine-chondroitin 250 mg-200 mg tablet (Osteo Bi-Flex) 1 tab PO BID DO NOT take the morning of surgery ffgkgtiv-sdja-lrvq 8 mg-folic 400 mcg-K 50 mcg-lutein 300 mcg tablet (Centrum Silver Women) 1 tab PO QAM ergocalciferol (vitamin D2) 1,250 mcg (50,000 unit) capsule 50,000 unit PO WEEKLY Take morning of surgery With a small sip of water, OTHERWISE NOTHING TO EAT OR DRINK AFTER MIDNIGHT: omeprazole 20 mg capsule,delayed release 20 mg PO QAM acetaminophen 500 mg capsule 1,000 mg PO DIRECTED PRN Pain Take evening before surgery ascorbic acid (vitamin C) 1,000 mg capsule 1 g PO QPM acetaminophen 500 mg capsule 1,000 mg PO DIRECTED PRN Pain Other Notes If you have any questions please call us at [phone] or [phone] or [phone] or [phone]
--- NOTE | 2025-03-27 14:31 | Anesthesiology Consultation ---
Date of Service March 27, 2025 Assessment & Plan (1) Encounter for pre-operative examination: - Infectious disease screening: Per assessment on 03/27/25- No known recent infectious disease contacts or current infectious disease symptoms. - Outpatient joint assessment: Pt currently scheduled for inpatient pathway. If surgeon requests review for outpatient joint pathway, patient is not a recommended candidate for outpatient joint program from anesthesia standpoint based on available information. - Plavix instructions: patient made aware that for neuraxial anesthesia, Plavix/Clopidogrel needs to be held 7 days prior to surgery. Patient voiced understanding/will check if okay with prescriber. - [place] PCP visit 04/02/25: "Estimated risk probability for darcy-operative KENNA.. Vital signs reviewed and stable.. From a general medical standpoint, patient is of acceptable risk for surgery and is medically cleared for left total hip arthroplasty." - Patient request/concern: Patient notes that she has chronic cervical/spinal issues- requests caution with positioning/supporting perioperatively specific ally in regards to cervical region. Chart Review Chart Review: Patient seen in Pre Admission Testing Teaching & Discussion Pre-Anesthesia Teaching/Discussion Notes: Instructed NPO after midnight before surgery,except medications with 15 cc of water. Medication instructions provided according to the PAT guidelines. History Surgery Operation Date: 04/26/25 07:50 Proposed Procedures p Left Total Hip Arthroplasty - Christopher Solares MD Height/Weight Height: 5 ft 6 in Weight: 68.1 kg Allergies Allergy/AdvReac Type Severity Reaction Status Date / Time lactose Allergy Severe GI symptoms Verified 04/02/25 14:10 Beta-Blockers Allergy Intermediate "Blacked Verified 04/02/25 14:10 (Beta-Adrenergic Bloc out" brimonidine [From Simbrinza] Allergy Intermediate Eye Verified 04/02/25 14:10 irritation brinzolamide [From Simbrinza] Allergy Intermediate Eye Verified 04/02/25 14:10 irritation erythromycin base Allergy Intermediate Nausea/vomi Verified 04/02/25 14:10 ting hylan G-F 20 [From Synvisc] Allergy Intermediate Edema Verified 04/02/25 14:10 sulfamethoxazole Allergy Intermediate Vomiting Verified 04/02/25 14:10 [From Bactrim] trimethoprim [From Bactrim] Allergy Intermediate Vomiting Verified 04/02/25 14:10 ibandronate sodium AdvReac Intermediate Gastrointestinal Verified 04/02/25 14:10 [From Miriam] Upset morphine AdvReac Intermediate GI symptoms Verified 04/02/25 14:10 venlafaxine AdvReac Intermediate Gastrointestinal Verified 04/02/25 14:10 Upset gluten AdvReac Mild Gastrointestinal Verified 04/02/25 14:10 Upset Medications Home Medications Medication Instructions Recorded Confirmed Last Taken mgpbqauo-twdy-wnbz 8 mg-folic 400 1 tab PO QAM 07/31/19 04/02/25 05/06/22 18:00 mcg-K 50 mcg-lutein 300 mcg tablet (Centrum Silver Women) acetaminophen 500 mg capsule 1,000 mg PO DIRECTED PRN Pain 08/15/21 04/02/25 Unknown latanoprost 0.005 % eye drops 1 drp ophthalmic (eye) PM 08/15/21 04/02/25 05/06/22 22:00 glucosamine-chondroitin 250 mg-200 1 tab PO BID 09/01/22 04/02/25 Unknown mg tablet (Osteo Bi-Flex) tamoxifen 20 mg tablet 20 mg PO QAM 10/16/22 04/02/25 Unknown ascorbic acid (vitamin C) 1,000 mg 1 g PO QPM 01/20/24 04/02/25 Unknown capsule roflumilast 0.3 % topical foam 1 applic topical UD 02/10/24 04/02/25 Unknown (Zoryve) denosumab 60 mg/mL subcutaneous 60 mg subcut Q6MO #1 mL 07/19/24 04/02/25 Unknown syringe (Prolia) nystatin-triamcinolone 100,000 See Rx Instructions topical TID 07/26/24 04/02/25 Unknown unit/g-0.1 % topical cream PRN chronic vulvitis #30 grams ergocalciferol (vitamin D2) 1,250 50,000 unit PO WEEKLY #12 caps 08/11/24 04/02/25 Unknown mcg (50,000 unit) capsule clopidogrel 75 mg tablet (Plavix) 75 mg PO PM #90 tabs 10/25/24 04/02/25 Unknown hydrocortisone acetate 25 mg 25 mg WA DAILY PRN Hemorrhoids 03/21/25 04/02/25 Unknown rectal suppository (Anusol-HC) omeprazole 20 mg capsule,delayed 20 mg PO QAM 09/24/25 10/06/25 Unknown release Past Medical History Medical History Atrial flutter "Single episode, no cardio" per patient Per [facility] [place] visit 06/02/2019, patient had 2011 holter monitor noting a. flutter. No noted a. flutter recurrence since then per patient/available records 3 day cardiac event monitor 01/2024: No a. fib or flutter Breast cancer of upper-outer quadrant of left female breast Invasive adenocarcinoma Estrogen receptor positive, progesterone receptor positive, and HER-2/oleg negative Hx lumpectomy and sentinel lymph node biopsy (2013) Hx radiation therapy (2013) Hx left breast lumpectomy/mastectomy (2022) Diagnosed with 2 different types of breast cancer (2013, 2021) per patient Cardiac murmur "Since childhood" No murmur noted at PAT visit 03/27/25 Echo 02/2024: Trace to mild MR. Trace TR. GERD (gastroesophageal reflux disease) Glaucoma History of meningioma Stable - unchanged since 2016 History of TIA (transient ischemic attack) 3 total between 5145-0115 Plavix started due to this, unsure if TIA or global amnesia No residual effects, no longer has to see neuro Post-menopausal atrophic vaginitis Exercise / Class Metabolic Activity II 4-5 Yardwork/Stairs/Walk up hill (one FS: No CP, no SOB) Past Family History Family History Mother Colorectal cancer Aunt Ovarian cancer paternal Father Myocardial infarction Hypertension Aunt Breast cancer paternal Grandmother (Maternal) Hypertension Brother Prostate cancer Other Impaired fasting glucose No family history of adverse response to anesthesia Past Surgical History Surgical History History of bladder surgery Transurethral Resection of the Bladder Tumor (2021) History of colonoscopy History of conization of cervix History of esophagogastroduodenoscopy (EGD) History of lumpectomy of left breast 2022 History of postoperative nausea and vomiting History of total mastectomy of left breast (08/05/22) Patient states no limb restrictions Hx of foot surgery 8 total for neuromas and bunions, bilat feet Right foot has titanium plate in place S/P cataract surgery R/L S/P total knee replacement (11/17/18) Right Status post D&C Status post left breast biopsy (12/20/13) Status post left breast reconstruction (12/22/22) After total mastectomy Status post partial mastectomy of left breast (01/15/14) 2014 Left breast with SLNB, exc of tumor and placement of balloon cath Status post tonsillectomy and adenoidectomy Past Anesthesia History No Hx of Anesthesia Complications and No Family Hx of Anesthesia Complications History of PONV History of PONV and Hx of Motion Sickness Social History Smoking Status: Never smoker Do You Dip or Chew Tobacco: No Hx Alcohol Use: Yes Alcohol type: wine alcohol intake frequency: holidays/special occasions only Hx Substance Use: No substance use type: does not use Review of Systems Patient denies chest pain, shortness of breath, dyspnea on exertion, fever, chills, cough, wheezing, palpitations. Physical Exam Vital Signs BP 128/69 P 67 TEMP 98.6 SP02 96%RA RESP 16 Physical Full cervical extension range of motion. Full TMJ range of motion. TMD 3 finger breaths Mallampati Score II Dentition: + missing, upper front bonded Lungs: clear throughout to auscultation Cardiac: regular rate and rhythm, no murmurs noted Spine: normal Carotid arteries: negative bruit Extremities: no LE edema Lab Results Anesthesia Preop Results Results Anesthesia Widget: WBC 8.00 K/ul (4.8-10.8) 03/27/25 Hgb 13.4 g/dl (12.0-16.0) 03/27/25 Hct 40.2 % (37.0-47.0) 03/27/25 Plt 199 K/uL (130-400) 03/27/25 Na 138 mmol/L (136-145) 03/27/25 K 3.6 mmol/L (3.5-5.1) 03/27/25 Cl 108 mmol/L (98-107) H 03/27/25 CO2 24 mmol/L (21-32) 03/27/25 BUN 17 mg/dl (6-23) 03/27/25 Creat 0.74 mg/dl (0.6-1.2) 03/27/25 Glucose Level 140 mg/dl (70-99(Fasting)) H 03/27/25 PT 10.5 Seconds (9.0-12.0) 03/27/25 PTT 25 Seconds (21-31) 03/27/25 INR 1.0 (0.9-1.1) 03/27/25 Urine Color Yellow 03/27/25 Urine Appearance Clear (Clear) 03/27/25 Urine pH 5.5 (4.5-7.5) 03/27/25 Urine Specific [place] 1.005 (1.000-1.030) 03/27/25 Urine Protein Negative (Negative) 03/27/25 Urine Glucose (UA) Negative (Negative) 03/27/25 Urine Ketones Negative (Negative) 03/27/25 Urine Blood 2+ (Negative) H 03/27/25 Urine Nitrite Negative (Negative) 03/27/25 Urine Bilirubin Negative (Negative) 03/27/25 Urine Urobilinogen Negative (Negative) 03/27/25 Urine Leukocyte Esterase Negative (Negative) 03/27/25 Urine WBC (Auto) 0-5 /hpf (0-5) 03/27/25 Urine RBC (Auto) 0-2 /hpf (0-2) 03/27/25 Urine Hyaline Casts (Auto) 0-2 /lpf (0-2) 03/27/25 Urine Epithelial Cells (Auto) 0-2 /hpf (0-2) 03/27/25 Urine Bacteria (Auto) None Seen (None Seen) 03/27/25 Blood Type O Positive 03/27/25 Antibody Screen NEGATIVE 03/27/25 Testing Electrocardiogram Date: 03/27/25 NSR at 62bpm. NS STA. No significant change compared to 07/31/2021 per supervisor cell maintenance comparison. Chest X-Ray Date: 03/27/25 FINDINGS: Heart size and pulmonary vasculature are normal. Stable hyperexpanded lungs. No consolidation or pleural effusion. Stable mild scoliosis. IMPRESSION: No acute findings.
--- NOTE | 2025-04-02 13:32 | History & Physical Report ---
Date of Service April 02, 2025 Assessment & Plan (1) Osteoarthritis of left hip: Plan: PRE-OP Diagnosis: Left hip osteoarthritis Planned Procedure: Left total hip arthroplasty Plan: Patient is scheduled to undergo this procedure at the [facility] with Dr. Solares on , April 26, 2025. Risks and complications of the procedure such as: Infection, bleeding, pain, scarring, nerve blood vessel damage, weakness, wound problems, stiffness, incomplete relief of symptoms, hardware failure, hardware loosening, wear, fracture, tendon or ligament injury, dislocation, leg length inequality, blood clots, embolism, heart attack, stroke and were explained to the patient at her visit today. Informed consent to perform the procedure was obtained. Patient is already met with anesthesia on March 27 and while there she obtained a CBC with differential, complete metabolic panel, PT/INR, blood type and screen, urinalysis, urine culture and sensitivity, EKG,and a nasal culture for MRSA. Patient will also need preoperative medical clearance from their primary care provider. This appointment is scheduled for April 02 at 2:30 PM. Patient states that she plans on doing in-home physical therapy for the first 1 to 2 weeks postoperatively with [facility] home care. Patient states that she will most likely elect to do outpatient physical therapy at our clinic. Patient has a walker, raised toilet seat, shower chair and a hip kit. During today's visit we reviewed the total hip packet as well as precautions. We discussed discharge planning from the hospital. I provided paperwork to obtain a handicap placard for their vehicle. We discussed lectures offered by [facility] in regards to joint replacement surgery via Zoom. I advised the patient that upon discharge from hospital we will prescribe a narcotic pain medication and anti-inflammatory. Patient will also resume her Plavix for blood clot prevention. Patient will be scheduled for 2-week postoperative follow-up visit with myself on May 09. This chart was completed utilizing Phytel voice recognition software. Grammatical errors, random word insertions, pronoun errors, and in complete sentences are an occasional consequence of the system. Any questions or concerns about the content, text, or information contained within the body of this dictation should be addressed directly to the physician for clarification. History of Present Illness Chief Complaint: Chief Complaint: Left hip pain Primary Care Provider: Tash Del Rio MD History of Present Illness (including history relevant to procedure): This 84-year-old female presents to the clinic today for her preoperative history and physical. Patient states she has had issues with her left hip since 2016. She states in the past year she has lost the ability to walk long distances. She states that at times she feels that her body is pulling or shifting to the left side. She states that she had a corticosteroid injection in her left hip back in August that did help slightly. She localizes most of the pain over the posterior lateral aspect of her hip. Patient states that she does develop a limp after she walks short distance. Due to failed conservative management patient is electing to proceed with surgical intervention. Review Of Systems: A 12 point review of systems is performed is unremarkable except for those stated in the HPI and past medical history. Past Medical History: Problems: Arthritis of left hip Left lumbar radiculitis Osteoarthritis of right knee Osteoarthritis of right knee Loose body of right knee Osteoarthritis of right knee Degenerative tear of left medial meniscus Right ankle sprain DDD (degenerative disc disease) Degenerative joint disease of hand Arthritis HLA antigen present Low back pain Trochanteric bursitis Syndactyly of toes Postcalcaneal bursitis Achilles tendinitis Disorder of hip Abnormal gait Rectal hemorrhage Altered bowel function Right knee pain History of heart murmur Mini stroke GERD History of breast cancer Procedure History Procedure Procedure Date Comments Tonsillectomy planned Colposcopy Foot repair - x6. Pins in right toes 2013 - x5 Colonoscopy Bladder surgery x 2 Left breast surgery x 2 01/27/2022 - COLO to cecum, redundant, diverticulosis, 10 mm polyp HF CS, Allergies and Sensitivities: beta blockers Current Home Meds: (Last Updated 03/30 15:16) ascorbic acid (Vitamin C 1000 mg oral tablet) 1,000 mg PO Daily calcium-vitamin D (Citracal + D) PO bid cholecalciferol (Vitamin D3 50,000 intl units oral capsule) 50,000 Int_Unit PO q7days chondroitin-glucosamine (Osteo Bi-Flex) clopidogrel (Plavix 75 mg oral tablet) 75 mg PO Daily diclofenac topical (Voltaren 1% topical gel) 1 appl topical qid PRN: Pain multivitamin with minerals (Centrum Silver oral tablet) 1 tab PO Daily omeprazole (omeprazole 20 mg oral delayed release capsule) 20 mg PO bid taMOXIfen (tamoxifen 20 mg oral tablet) 20 mg PO Daily Allergies Allergy/AdvReac Type Severity Reaction Status Date / Time lactose Allergy Severe GI symptoms Verified 03/22/25 14:36 Beta-Blockers Allergy Intermediate "Blacked Verified 03/22/25 14:36 (Beta-Adrenergic Bloc out" brimonidine [From Simbrinza] Allergy Intermediate Eye Verified 03/22/25 14:36 irritation brinzolamide [From Simbrinza] Allergy Intermediate Eye Verified 03/22/25 14:36 irritation erythromycin base Allergy Intermediate Nausea/vomi Verified 03/22/25 14:36 ting hylan G-F 20 [From Synvisc] Allergy Intermediate Edema Verified 03/21/25 16:08 sulfamethoxazole Allergy Intermediate Vomiting Verified 03/21/25 16:08 [From Bactrim] trimethoprim [From Bactrim] Allergy Intermediate Vomiting Verified 03/21/25 16:08 ibandronate sodium AdvReac Intermediate Gastrointestinal Verified 03/21/25 16:08 [From Boniva] Upset morphine AdvReac Intermediate GI symptoms Verified 03/22/25 14:36 venlafaxine AdvReac Intermediate Gastrointestinal Verified 03/21/25 16:08 Upset gluten AdvReac Mild Gastrointestinal Verified 03/21/25 16:08 Upset Home Medications Medication Instructions Recorded Confirmed Type wqyndxqb-hkvh-ogbn 8 mg-folic 400 1 tab PO QAM 07/31/19 03/21/25 History mcg-K 50 mcg-lutein 300 mcg tablet (Centrum Silver Women) acetaminophen 500 mg capsule 1,000 mg PO DIRECTED PRN Pain 08/15/21 03/21/25 History latanoprost 0.005 % eye drops 1 drp ophthalmic (eye) PM 08/15/21 03/21/25 History glucosamine-chondroitin 250 mg-200 1 tab PO BID 09/01/22 03/21/25 History mg tablet (Osteo Bi-Flex) tamoxifen 20 mg tablet 20 mg PO QAM 10/16/22 03/21/25 History ascorbic acid (vitamin C) 1,000 mg 1 g PO QPM 01/20/24 03/21/25 History capsule roflumilast 0.3 % topical foam 1 applic topical UD 02/10/24 03/21/25 History (Zoryve) denosumab 60 mg/mL subcutaneous 60 mg subcut Q6MO #1 mL 07/19/24 03/21/25 Rx syringe (Prolia) nystatin-triamcinolone 100,000 See Rx Instructions topical TID 07/26/24 03/21/25 Rx unit/g-0.1 % topical cream PRN chronic vulvitis #30 grams ergocalciferol (vitamin D2) 1,250 50,000 unit PO WEEKLY #12 caps 08/11/24 03/21/25 Rx mcg (50,000 unit) capsule clopidogrel 75 mg tablet (Plavix) 75 mg PO PM #90 tabs 10/25/24 03/21/25 Rx hydrocortisone acetate 25 mg 25 mg SD DAILY PRN Hemorrhoids 03/21/25 03/21/25 History rectal suppository (Anusol-HC) omeprazole 20 mg capsule,delayed 20 mg PO QAM 03/21/25 03/21/25 History release Past Med/Surg History Problem List (Updated 04/02/25 @ 13:31 by James Cortez PA-C) Osteoarthritis of left hip Encounter for pre-operative examination Left knee DJD Right peroneal tendinosis Iliotibial band tendonitis of right side Invasive ductal carcinoma of breast, female Recurrent cancer of left breast (Chronic 05/26/22) Tubular adenoma of colon Osteoporosis (Chronic) Gastroesophageal reflux (Chronic) Glaucoma (Chronic) Degenerative joint disease (Chronic) Medical History History of meningioma Stable - unchanged since 2016 History of TIA (transient ischemic attack) 3 total between [id number] Plavix started due to this, unsure if TIA or global amnesia No residual effects, no longer has to see neuro Glaucoma GERD (gastroesophageal reflux disease) Cardiac murmur "Since childhood" No murmur noted at PAT visit 03/27/25 Echo 02/2024: Trace to mild MR. Trace TR. Post-menopausal atrophic vaginitis Atrial flutter "Single episode, no cardio" per patient Per [facility] visit 06/02/2019, patient had 2011 holter monitor noting a. flutter. No noted a. flutter recurrence since then per patient/available records 3 day cardiac event monitor 01/2024: No a. fib or flutter Breast cancer of upper-outer quadrant of left female breast Invasive adenocarcinoma Estrogen receptor positive, progesterone receptor positive, and HER-2/oleg negative Hx lumpectomy and sentinel lymph node biopsy (2013) Hx radiation therapy (2013) Hx left breast lumpectomy/mastectomy (2022) Diagnosed with 2 different types of breast cancer (2013, 2021) per patient Surgical History History of postoperative nausea and vomiting History of total mastectomy of left breast (08/05/22) Patient states no limb restrictions Status post left breast reconstruction (12/22/22) After total mastectomy History of lumpectomy of left breast 2022 History of bladder surgery Transurethral Resection of the Bladder Tumor (2021) History of esophagogastroduodenoscopy (EGD) History of colonoscopy History of conization of cervix Hx of foot surgery 8 total for neuromas and bunions, bilat feet Right foot has titanium plate in place S/P total knee replacement (11/17/18) Right S/P cataract surgery R/L Status post partial mastectomy of left breast (01/15/14) 2013 Left breast with SLNB, exc of tumor and placement of balloon cath Status post tonsillectomy and adenoidectomy Status post D&C Status post left breast biopsy (12/20/13) Family History Mother Colorectal cancer Aunt Ovarian cancer paternal Father Myocardial infarction Hypertension Aunt Breast cancer paternal Grandmother (Maternal) Hypertension Brother Prostate cancer Other Impaired fasting glucose No family history of adverse response to anesthesia Social History Smoking Status: Never smoker Second Hand Exposure: Yes ( quit smoking apprx 40 yrs ago); Do You Dip or Chew Tobacco: No; Hx Alcohol Use: Yes Alcohol type: wine Alcohol Intake Frequency Comment: occasionally Hx Substance Use: No Preferred Language: Divehi Communication Ability: Effective Visual Impairment: No Limitations Hearing Ability: Normal Forge Heater Required: No Beliefs That Will Affect Care: None marital status: Current Living Situation: Spouse Current Living Situation Comment: current occupational status: retired current occupation: retired nurse Feels Safe at Home: Yes Childhood Exposure to Second-Hand Smoke: Yes Diet: gluten free and lactose free Diet Comment: Low FODMAP, well balanced diet during the past year weight has: remained stable Dental Care, Regularly: Yes Physical Activity Frequency: Daily Physical Activity Frequency Comment: 7-10,000 steps daily, swimming 2x weekly Seatbelt Use: always Sunscreen Use: Yes Assistive Devices: Glasses Review of Systems All systems reviewed & are unremarkable except as noted in Subjective Physical Exam Physical Exam: Initial Wt: 03/30 67.7 kg 149 lb Physical Exam: (relevant to the procedure, including heart and lung evaluation) General: Alert and oriented x 3 with proper grooming and hygiene Eyes: Pupils are equal and reactive to light with accommodation. Extraocular movements are intact Throat: Posterior oropharynx clear with absence of edema, erythema or exudate Cardiac: Regular rate and rhythm with a grade 2/6 holosystolic MURMUR heard best over the left lower sternal border Lungs: Clear to auscultation throughout with no wheezing, rales or rhonchi Abdomen: Nonobese, nondistended, nontender with normal active bowel sounds Extremities: Left hip: ROM: Flexion 120/ External rotation 45/ Internal rotation 25 Some pain with Log roll Positive Scour test Negative Impingement test Positive EDU test Positive Stinchfield test Pain with axial load Mild Tenderness over trochanteric bursa Neuro: Cranial nerves II through XII are intact no motor or sensory deficit Skin: Normal in appearance with no open skin areas or discharge Results & Data Diagnostic Findings Studies (relevant to the procedure): 3 views (AP pelvis, false profile, cross table lateral) of the left hip obtained today and personally interpreted by me taken at [facility] show central pattern OA bilaterally
[2025-04-26] MEDS ORDERED: ROPIVACAINE 0.5% 5 MG/ML 30 ML VIAL ONE (06:31)
--- NOTE | 2025-04-26 06:40 | History & Physical Bridge Note ---
Date of Service April 26, 2025 History & Physical Bridge Note I have examined the patient, reviewed the History & Physical and in the interval since the performance of the History & Physical I have noted the following changes of clinical significance: no changes noted
[2025-04-26] MEDS ORDERED: MIDAZOLAM HCL 1 MG/ML 2ML VIAL ONE (06:48)
[2025-04-26] MEDS: LR 15ML/HR IV SCH (06:57)
[2025-04-26] MEDS: dexAMETHasone**PF** 10 MG/ML VIAL IV SCH (07:03)
[2025-04-26] MEDS: FAMOTIDINE 20 MG TAB PO SCH (07:09)
[2025-04-26] MEDS: CeleBREX 200 MG CAP PO SCH (07:10)
[2025-04-26] MEDS: LR 60ML/HR IV SCH (07:10)
[2025-04-26] MEDS: ACETAMINOPHEN 500 MG TAB PO SCH (07:10)
[2025-04-26] MEDS ORDERED: PROPOFOL IV EMULSION 10 MG/ML 20 ML VIAL IV ONE (07:18)
[2025-04-26] MEDS ORDERED: PROMETHAZINE HCL 6.25 MG in SODIUM CHLORIDE 0.9% 50 ML IV PRN (07:31)
[2025-04-26] MEDS ORDERED: ONDANSETRON INJ 2 MG/ML 2 ML VIAL IV PRN ×2 (07:31→09:34)
[2025-04-26] MEDS ORDERED: ATROPINE SULFATE 0.1 MG/ML 10ML SYR IV PRN (07:31)
[2025-04-26] MEDS ORDERED: HYDROmorphone INJ 1 MG/ML SYRINGE IV PRN (07:31)
[2025-04-26] MEDS: TRANEXAMIC ACID 1,000 MG **IV Pre-op IV SCH (07:42)
[2025-04-26] MEDS ORDERED: ePHEDrine sulfate 50 MG/5 ML SYR ONE (08:29)
[2025-04-26] MEDS: ORTHO JOINT ANESTHETIC ONE (08:29)
[2025-04-26] MEDS: ROPIVACAINE 0.5% HCL/PF 246 MG, Ketorolac (*for OR use only*) 30 MG, EPINEPHrine 30MG/3... INFIL SCH (08:29)
[2025-04-26] MEDS ORDERED: PHENYLEPHRINE 100MCG/ML 5ML SYR ONE (08:34)
[2025-04-26] MEDS ORDERED: ONDANSETRON INJ 2 MG/ML 2 ML VIAL ONE (08:53)
--- NOTE | 2025-04-26 09:30 | Operative Report ---
Post Operative Report Pre & Post Diagnosis Operation Date: 04/26/25 07:50 Pre-Op Diagnosis: Left Hip Osteoarthritis Post-Op Diagnosis: Left Hip Osteoarthritis I identified the patient and participated in the time-out.: Yes Procedure Operation Date: 04/26/25 07:50 Actual Procedures p Left Total Hip Arthroplasty(Left) - Christopher Solares MD Surgeon Christopher Solares MD [employer] Police Lieutenant Sai Cortez PA-Shanta Estimated Blood Loss 100 Findings Consistent with Post-Op Diagnosis Specimens femoral head Description of Procedure I was present during the entire case assisting with positioning, prepping, draping, wound retraction, wound closure, dressing and abduction pillow placement. No fellow present. Please see Dr. Solares operative note for specifics of the case. I attest to the content of the Intraoperative Record and any orders documented therein. Any exceptions are noted below.
[2025-04-26] MEDS ORDERED: METOCLOPRAMIDE HCL INJ 5 MG/ML 2 ML VIAL IV PRN (09:34)
[2025-04-26] MEDS ORDERED: NALOXONE HCL 0.4 MG/1 ML VIAL/CARP IV PRN (09:34)
[2025-04-26] MEDS ORDERED: MAGNESIUM HYDROXIDE SUSP 30 ML UDC PO PRN (09:34)
[2025-04-26] MEDS ORDERED: ALUMINUM/MAGNESIUM SUSP 30 ML UDC PO PRN (09:34)
[2025-04-26] MEDS ORDERED: diphenhydrAMINE 50 MG/ML VIAL IV PRN (09:34)
--- NOTE | 2025-04-26 09:39 | Operative Report ---
Post Operative Report Pre & Post Diagnosis Operation Date: 04/26/25 07:50 Pre-Op Diagnosis: Left Hip Osteoarthritis Post-Op Diagnosis: Left Hip Osteoarthritis I identified the patient and participated in the time-out.: Yes Procedure Operation Date: 04/26/25 07:50 Actual Procedures p Left Total Hip Arthroplasty(Left) - Christopher Solares MD Surgeon Christopher Solares MD Insecticide Maker Sai Cortez PA-C Estimated Blood Loss 100 Findings Consistent with Post-Op Diagnosis Specimens Left femoral head Anesthesia Type Spinal MAC Complications none Disposition Disposition: Recovery Room Indications 84-year-old female, with worsening left hip pain over the past 1 year. No specific injury. She has undergone extensive conservative management with activity modification, oral medication, and a corticosteroid injection into her troches bursa which did not give her much relief. Physical exam was notable for positive scour test and positive EDU and Stinchfield test. She did have mild tenderness over the troches bursa. X-ray showed central pattern osteoarthritis. Having failed extensive nonsurgical management she was a candidate for surgery. I reviewed the risks and benefits of surgery, alternatives to surgery, and expected outcomes. After reviewing all these she elected to proceed with surgery. All questions were answered. Informed consent was signed. Description of Procedure Patient was identified in the preoperative holding area where the surgical site, left hip, was marked. A spinal anesthetic was placed, then the patient was brought back to the main operating room, placed in the operating table and moved into the lateral decubitus position. Axillary roll was placed. All bony prominences were padded. Perioperative antibiotics and tranexamic acid 1 gram IV were administered. The operative extremity was prepped and draped in the normal sterile fashion. Prior to incision a multidisciplinary timeout was called. All in the room were in agreement. We began by making an incision for a posterior approach to the hip. We dissected down through subcutaneous tissues to the level of the fascia. The fascia was incised in line with the incision. Charnley bow was placed. The hip abductor tendon was inspected and there was some partial-thickness tearing that had a chronic appearance. No repair was indicated. Fatty tissue was reflected posteriorly off the back of the greater trochanter to expose the piriformis and short external rotators of the hip. Quadratus femoris was taken off the femur subperiosteally. The piriformis and short external rotators were dissected off the posterior aspect of the hip. A box cut was made in the capsule. Inferior hip capsule was released off the femur. The femoral head was dislocated. The femoral neck cut was made at our preoperative template. The acetabulum was then exposed. The labrum was sharply excised. Contents of the cotyloid fossa were removed with electrocautery. We then began reaming at a size 8 mm less than our preoperative template. We reamed up by 1 [address] the way up to a size 52 mm cup. This gave us good bleeding cancellus bone circumferentially. The acetabulum was then irrigated out and dried. The real emphasis cup was then impacted down into position with 40 degrees of lateral opening and 20 degrees of anteversion. A single cancellous bone screw was placed up into the ilium. Excellent fixation was obtained. A metal dual mobility liner was placed. I checked to ensure the Paul taper had engaged appropriately which was confirmed. Next we turned our attention to the femur. The lateral neck was removed with a box osteotome. Intramedullary guide was used to establish the intramedullary canal. We then broached all the way up to a size 3. We began trialing with a standard offset neck and a +1.5 head. Hip was reduced. Leg lengths were symmetric. The hip was stable in extension and external rotation, and stable in the sleeper position. At 90 degrees of hip flexion the hip could be internally rotated 75 degrees without dislocating which I was happy with. A bone hook was required to dislocate the hip. Therefore the femoral trial was removed and the femoral canal was irrigated and dried. The real Actis femoral stem was opened up. This was impacted down into position. The dual mobility head was opened up, assembled on the back table, and gently impacted down onto the trunnion. The hip was atraumatically reduced. Another 1 gram of IV tranexamic acid was started prior to closure. The wound was irrigated out with sterile Betadine solution. The periarticular injection cocktail was then placed. The short external rotators, piriformis, and posterior capsule were repaired through drill holes in the greater trochanter using #2 Vicryl. The fascia was run with a looped #1 PDS. The subcutaneous layer was closed with #1 PDS. The dermal layer was closed with 2-0 Vicryl. Zip line was used for the skin followed by a Silverlon dressing. A compressive dressing was then placed. The patient was then rolled supine. Leg lengths were rechecked and were symmetric. An abduction pillow was placed. Sedation was lifted and the patient was transferred to the recovery room in stable condition. Summary of implants: Depuy emphasis acetabular Shell Sector Cup, 52 mm outer diameter [place] Cancellous bone screw, 6.5 x 40 mm [place] dual mobility metal liner, 52 x 42 DePuy Actis collared cementless Femoral stem, 12/14 taper, size 3 standard offset 28 mm ceramic femoral head with +1.5 offset Emphasis 42 mm x 28 mm AOX polyethylene outer head Postoperative course: Patient will be admitted overnight from the recovery room. Patient will be weightbearing as tolerated with posterior hip precautions. Resume plavix for DVT prophylaxis I attest to the content of the Intraoperative Record and any orders documented therein. Any exceptions are noted below.
--- NOTE | 2025-04-26 10:51 | XRay Report ---
XR pelvis 1-2V routine CLINICAL HISTORY: In PACU - Post Surgical COMPARISON: 03/30/2025 FINDINGS: Left hip prosthesis shows no hardware complication. There is expected soft tissue gas. IMPRESSION: Unremarkable postoperative exam. ACT 112: Negative or not required by law. Electronically signed by: Dixon Bellamy M.D. 04/26/2025 10:49 AM
[2025-04-26] MEDS ORDERED: NYSTATIN/TRIAMCIN CR 15 GM TUBE EXT PRN (11:28)
[2025-04-26] MEDS ORDERED: HYDROCORTISONE ACETATE 25 MG SUPP PR PRN (11:28)
[2025-04-26] MEDS: KETOROLAC TROMETHAMINE 15 MG/ML VIAL IV SCH (11:43)
--- NOTE | 2025-04-26 11:57 | Anesthesiology Progress Note ---
Date of Service April 26, 2025 Anesthesia Post Procedure Vital Signs Vital Signs: Temp Pulse Pulse Resp BP BP Pulse Ox 04/26/25 11:35 36.4 C L 74 16 120/69 94 04/26/25 11:10 36.4 C L 69 16 136/64 95 04/26/25 10:45 66 16 120/50 L 96 04/26/25 10:35 59 L 18 130/59 L 97 04/26/25 10:25 63 15 139/61 96 04/26/25 10:15 63 15 139/60 96 04/26/25 10:05 58 L 14 131/55 L 93 04/26/25 09:55 36.5 C 65 16 145/53 H 96 04/26/25 09:45 57 L 16 138/57 L 97 04/26/25 09:35 62 12 125/59 L 98 04/26/25 09:27 36.1 C L 68 18 136/58 L 96 04/26/25 06:27 37.1 C 68 20 145/65 H 96 O2 Del Method O2 Flow Rate 04/26/25 11:35 Room Air 04/26/25 11:10 Room Air 04/26/25 10:45 Room Air 04/26/25 10:35 Room Air 04/26/25 10:25 Room Air 04/26/25 10:15 Room Air 04/26/25 10:05 Room Air 04/26/25 09:55 Room Air 04/26/25 09:45 Room Air 04/26/25 09:35 Oxymask 2 04/26/25 09:27 Oxymask 6 04/26/25 06:27 Room Air Transfer of Care Handoff Completed per policy Notes Mental Status: alert / awake / arousable and participated in evaluation Patient Amnestic to Procedure: Yes Nausea / Vomiting: adequately controlled Pain: adequately controlled Airway Patency, RR, SpO2: stable & adequate BP & HR: stable & adequate Hydration State: stable & adequate Anesthetic Complications: no major complications apparent and Pt Satisfied with anesthetic care
[2025-04-26] MEDS: SODIUM CHLORIDE 0.9% 1,000 ML IV SCH (12:13)
[2025-04-26] MEDS: ACETAMINOPHEN 500 MG TAB PO PRN (14:32)
[2025-04-26] MEDS: Scopolamine CHECK PATCH PLACEMENT SCH (16:36)
[2025-04-26] MEDS: GLUCOSAMINE SULFATE 500 MG CAP PO SCH (16:38)
[2025-04-26] MEDS: ASCORBIC ACID 500 MG TAB PO SCH (20:16)
[2025-04-26] MEDS: CLOPIDOGREL BISULFATE 75 MG TAB PO SCH (20:16)
[2025-04-26] MEDS: DOCUSATE SODIUM 100 MG CAP PO SCH (20:17)
[2025-04-26] MEDS: SENNA 8.6 MG TAB PO SCH (20:17)
[2025-04-26] MEDS: LATANOPROST 0.005% OP SOLN 2.5 ML BTL OPL SCH (21:21)
[2025-04-26 23:06] VITALS: O2SAT 97
[2025-04-27 06:28] LABS: Hematocrit (blood only) 31.1 % (37.0-47.0); Hemoglobin 10.7 g/dl (12.0-16.0); Immature Granulocytes # (auto) 0.04 K/uL (0.01-0.20); Immature Granulocytes % (auto) 0.4 %; Mean Corpuscular Hemoglobin 30.1 pg (25.0-34.0); Mean Corpuscular Volume 87.4 fL (80.0-100.0); Platelet Count 138 K/uL (130-400); RDW Standard Deviation 40.2 fL (36.4-46.3); Red Blood Count 3.56 M/uL (4.20-5.40); White Blood Count 9.97 K/ul (4.8-10.8)
[2025-04-27 07:03] LABS: Anion Gap 4.0 (3-11); Blood Urea Nitrogen 25.0 mg/dl (6-23); Calcium 7.9 mg/dl (8.6-10.3); Carbon Dioxide 25.0 mmol/L (21-32); Chloride 110.0 mmol/L (98-107); Creatinine Clr Calc Pharmacy 45.1 ml/min; Glucose 127.0 mg/dl (70-99(Fasting)); Potassium 4.0 mmol/L (3.5-5.1); Sodium 139.0 mmol/L (136-145)
[2025-04-27 08:25] VITALS: BP 116/68; PULSE 68; RESP 18; TEMP 98.4
[2025-04-27] MEDS: dexAMETHasone 10 MG in SYRINGE 0 ML IV SCH (08:35)
[2025-04-27] MEDS: CEROVITE ADV FORMULA TAB PO SCH (08:36)
[2025-04-27] MEDS: MULTIVITAMIN TAB PO SCH (08:38)
[2025-04-27] MEDS: TAMOXIFEN CITRATE 10 MG TABLET PO SCH (08:38)
--- NOTE | 2025-04-27 09:04 | Orthopedic Progress Note ---
Date of Service April 27, 2025 Assessment & Plan (1) S/P total left hip arthroplasty: Plan: Total hip precautions reviewed PT/OT Weightbearing as tolerated with walker assistance Keep Silverlon dressing in place until follow-up Abduction pillow use x 6 weeks DVT prophylaxis with YOHAN stockings and Plavix Pain control with p.o. medication Ice to the easy wrap Plan is to discharge home today with in-home physical therapy for the first 2 weeks Follow-up at [facility] orthopedics as previously scheduled With questions contact our clinic at [phone] Admission and Anticipated Discharge Date Admission Date: April 26, 2025 Subjective This 84-year-old female is day 1 status post left total hip arthroplasty. Patient states she is doing very well. She states her pain is very much less than it was preoperatively. She feels that she is managed well with tramadol and Toradol. Currently she denies chest pain, shortness of breath, fever, chills, sweats, nausea, vomiting, diarrhea or difficulty voiding. She has no complaint of numbness or tingling in her left lower extremity is hoping to be discharged home later this morning. Review of Systems Review of Systems: All systems reviewed & are unremarkable except as noted in Subjective Physical Exam Physical Exam: Left hip: Outer dressing was removed, Silverlon is clean dry and intact and left in place. Patient has no discomfort with logroll testing. She is able to perform an active straight leg raise test and actively dorsi and plantarflex her foot against resistance. She tolerates passive hip flexion to 80 degrees and only feels a slight pulling sensation with light passive external rotation. She has no discomfort with internal rotation. Patient is able to detect light sensation to touch over the pads of all digits. Her peripheral pulses are 2+. She is able to easily transition from a seated to a standing position with her walker. Her quad strength is 4 out of 5. Results & Data Vital Signs (Past 12 Hours) Vital Signs Temp Pulse Pulse Resp BP BP Pulse Ox 04/27/25 08:24 36.9 C 68 18 116/68 97 04/27/25 03:51 36.6 C 72 17 125/68 97 04/26/25 23:05 36.4 C L 74 16 115/68 97 O2 Del Method 04/27/25 08:24 Room Air 04/27/25 03:51 Room Air 04/26/25 23:05 Room Air Diagnostic Findings Laboratory Results WBC 9.97 K/ul (4.8-10.8) 04/27/25 05:56 RBC 3.56 M/uL (4.20-5.40) L 04/27/25 05:56 Hgb 10.7 g/dl (12.0-16.0) L 04/27/25 05:56 Hct 31.1 % (37.0-47.0) L 04/27/25 05:56 MCV 87.4 fL (80.0-100.0) 04/27/25 05:56 MCH 30.1 pg (25.0-34.0) 04/27/25 05:56 MCHC 34.4 g/dL (32.0-36.0) 04/27/25 05:56 RDW Std Deviation 40.2 fL (36.4-46.3) 04/27/25 05:56 RDW Coeff of Shashi 12.5 % (11.5-14.5) 04/27/25 05:56 Plt Count 138 K/uL (130-400) 04/27/25 05:56 MPV 10.5 fL (9.4-12.4) 04/27/25 05:56 Immature Gran % (Auto) 0.4 % 04/27/25 05:56 Neut % (Auto) 68.8 % 04/27/25 05:56 Lymph % (Auto) 23.2 % 04/27/25 05:56 Arenac % (Auto) 7.2 % 04/27/25 05:56 Eos % (Auto) 0.3 % 04/27/25 05:56 Baso % (Auto) 0.1 % 04/27/25 05:56 Neut # (Auto) 6.86 K/uL (1.40-6.50) H 04/27/25 05:56 Lymph # (Auto) 2.31 K/uL (1.20-3.40) 04/27/25 05:56 Arenac # (Auto) 0.72 K/uL (0.11-0.59) H 04/27/25 05:56 Eos # (Auto) 0.03 K/uL (0.00-0.50) 04/27/25 05:56 Baso # (Auto) 0.01 K/uL (0.00-0.20) 04/27/25 05:56 Immature Gran # (Auto) 0.04 K/uL (0.01-0.20) 04/27/25 05:56 Sodium 139 mmol/L (136-145) 04/27/25 05:56 Potassium 4.0 mmol/L (3.5-5.1) 04/27/25 05:56 Chloride 110 mmol/L (98-107) H 04/27/25 05:56 Carbon Dioxide 25 mmol/L (21-32) 04/27/25 05:56 Anion Gap 4 (3-11) 04/27/25 05:56 BUN 25 mg/dl (6-23) H 04/27/25 05:56 Creatinine 0.87 mg/dl (0.6-1.2) 04/27/25 05:56 Est Cr Clr Drug Dosing 45.1 ml/min 04/27/25 05:56 eGFR 65.66 04/27/25 05:56 BUN/Creatinine Ratio 28.7 (10-20) H 04/27/25 05:56 Glucose 127 mg/dl (70-99(Fasting)) H 04/27/25 05:56 Calcium 7.9 mg/dl (8.6-10.3) L 04/27/25 05:56 Impressions Pelvis X-Ray 04/26/25 09:34 XR pelvis 1-2V routine CLINICAL HISTORY: In PACU - Post Surgical COMPARISON: 03/30/2025 FINDINGS: Left hip prosthesis shows no hardware complication. There is expected soft tissue gas. IMPRESSION: Unremarkable postoperative exam. ACT 112: Negative or not required by law. Electronically signed by: Dixon Bellamy M.D. 04/26/2025 10:49 AM
--- NOTE | 2025-04-27 09:06 | Discharge Summary ---
Date of Service April 27, 2025 Admission HPI Per Admitting Provider History of Present Illness (including history relevant to procedure): This 84-year-old female presents to the clinic today for her preoperative history and physical. Patient states she has had issues with her left hip since 2016. She states in the past year she has lost the ability to walk long distances. She states that at times she feels that her body is pulling or shifting to the left side. She states that she had a corticosteroid injection in her left hip back in August that did help slightly. She localizes most of the pain over the posterior lateral aspect of her hip. Patient states that she does develop a limp after she walks short distance. Due to failed conservative management patient is electing to proceed with surgical intervention. Review Of Systems: A 12 point review of systems is performed is unremarkable except for those stated in the HPI and past medical history. Past Medical History: Problems: Arthritis of left hip Left lumbar radiculitis Osteoarthritis of right knee Osteoarthritis of right knee Loose body of right knee Osteoarthritis of right knee Degenerative tear of left medial meniscus Right ankle sprain DDD (degenerative disc disease) Degenerative joint disease of hand Arthritis HLA antigen present Low back pain Trochanteric bursitis Syndactyly of toes Postcalcaneal bursitis Achilles tendinitis Disorder of hip Abnormal gait Rectal hemorrhage Altered bowel function Right knee pain History of heart murmur Mini stroke GERD History of breast cancer Procedure History Procedure Procedure Date Comments Tonsillectomy planned Colposcopy Foot repair - x6. Pins in right toes 2013 - x5 Colonoscopy Bladder surgery x 2 Left breast surgery x 2 01/27/2022 - COLO to cecum, redundant, diverticulosis, 10 mm polyp HF CS, Allergies and Sensitivities: beta blockers Current Home Meds: (Last Updated 03/30 15:16) ascorbic acid (Vitamin C 1000 mg oral tablet) 1,000 mg PO Daily calcium-vitamin D (Citracal + D) PO bid cholecalciferol (Vitamin D3 50,000 intl units oral capsule) 50,000 Int_Unit PO q7days chondroitin-glucosamine (Osteo Bi-Flex) clopidogrel (Plavix 75 mg oral tablet) 75 mg PO Daily diclofenac topical (Voltaren 1% topical gel) 1 appl topical qid PRN: Pain multivitamin with minerals (Centrum Silver oral tablet) 1 tab PO Daily omeprazole (omeprazole 20 mg oral delayed release capsule) 20 mg PO bid taMOXIfen (tamoxifen 20 mg oral tablet) 20 mg PO Daily Admission Exam Per Admitting Provider Initial Wt: 03/30 67.7 kg 149 lb Physical Exam: (relevant to the procedure, including heart and lung evaluation) General: Alert and oriented x 3 with proper grooming and hygiene Eyes: Pupils are equal and reactive to light with accommodation. Extraocular movements are intact Throat: Posterior oropharynx clear with absence of edema, erythema or exudate Cardiac: Regular rate and rhythm with a grade 2/6 holosystolic MURMUR heard best over the left lower sternal border Lungs: Clear to auscultation throughout with no wheezing, rales or rhonchi Abdomen: Nonobese, nondistended, nontender with normal active bowel sounds Extremities: Left hip: ROM: Flexion 120/ External rotation 45/ Internal rotation 25 Some pain with Log roll Positive Scour test Negative Impingement test Positive EDU test Positive Stinchfield test Pain with axial load Mild Tenderness over trochanteric bursa Neuro: Cranial nerves II through XII are intact no motor or sensory deficit Skin: Normal in appearance with no open skin areas or discharge Principal Diagnosis Left hip osteoarthritis Discharge Exam Left hip: Outer dressing was removed, Silverlon is clean dry and intact and left in place. Patient has no discomfort with logroll testing. She is able to perform an active straight leg raise test and actively dorsi and plantarflex her foot against resistance. She tolerates passive hip flexion to 80 degrees and only feels a slight pulling sensation with light passive external rotation. She has no discomfort with internal rotation. Patient is able to detect light sensation to touch over the pads of all digits. Her peripheral pulses are 2+. She is able to easily transition from a seated to a standing position with her walker. Her quad strength is 4 out of 5. Discharge Data Allergies Allergy/AdvReac Type Severity Reaction Status Date / Time lactose Allergy Severe GI symptoms Verified 04/26/25 06:32 Beta-Blockers Allergy Intermediate "Blacked Verified 04/26/25 06:32 (Beta-Adrenergic Bloc out" brimonidine [From Simbrinza] Allergy Intermediate Eye Verified 04/26/25 06:32 irritation brinzolamide [From Simbrinza] Allergy Intermediate Eye Verified 04/26/25 06:32 irritation erythromycin base Allergy Intermediate Nausea/vomi Verified 04/26/25 06:32 ting hylan G-F 20 [From Synvisc] Allergy Intermediate Edema Verified 04/26/25 06:32 sulfamethoxazole Allergy Intermediate Vomiting Verified 04/26/25 06:32 [From Bactrim] trimethoprim [From Bactrim] Allergy Intermediate Vomiting Verified 04/26/25 06:32 ibandronate sodium AdvReac Intermediate Gastrointestinal Verified 04/26/25 06:32 [From Boniva] Upset morphine AdvReac Intermediate GI symptoms Verified 04/26/25 06:32 venlafaxine AdvReac Intermediate Gastrointestinal Verified 04/26/25 06:32 Upset gluten AdvReac Mild Gastrointestinal Verified 04/26/25 06:32 Upset Procedures Performed Operation Date: 04/26/25 07:50 Actual Procedures p Left Total Hip Arthroplasty(Left) - Christopher Solares MD Hospital Course (1) S/P total left hip arthroplasty: Patient had an uneventful overnight stay following total hip arthroplasty. She is very pleased with the results of the surgery. She is planning on being discharged home later this morning with in-home physical therapy for the first 2 weeks. Total hip precautions reviewed PT/OT Weightbearing as tolerated with walker assistance Keep Silverlon dressing in place until follow-up Abduction pillow use x 6 weeks DVT prophylaxis with YOHAN stockings and Plavix Pain control with p.o. medication Ice to the easy wrap Plan is to discharge home today with in-home physical therapy for the first 2 weeks Follow-up at [facility] orthopedics as previously scheduled With questions contact our clinic at [phone] Total Time Total Time Spent Total Time Spent (In Minutes): 20 mins Discharge Plan Discharge Items Patient Disposition: Home - Home Health Services Reason For Visit: Left Hip Osteoarthritis Discharge Diagnosis: s/p left total hip arthroplasty Activity: As commented below Lifting: None Bathing: Keep incision dry Bathing Comment: May shower later today Sexual Activity: Wait until after follow-up appointment Exercise/Sports: Wait until after follow-up appointment Driving/Machine Use: No driving until cleared by protection specialist Weightbearing: Left weightbearing Weightbearing Comment: As tolerated with walker assistance Non-emergency contact: Surgeon Call non-emergency contact if: you have any medication questions, your pain is not controlled, your temperature is above 101.5, your wound has increased drainage and your wound pain has increased Follow-up/Referrals: Tash Del Rio MD [Primary Care Provider] - Diet: Regular Addtl Attending Provider Instructions: Post-operative Instructions Dear Patient and Family/Friends, Before you are discharged from the hospital, it is important to know what to expect when you get home after surgery. To that end, we have created this sheet of discharge instructions which covers many commonly asked questions. Make sure you go through this sheet in its entirety with your nurse before you are discharged. Please note that we will go over the specifics of your surgery and recovery when you return for your first post-operative visit. Sincerely, Dr. Solares Medications 1. Tramadol 50 mg: Take 1 to 2 tablets every 4-6 hours as needed for postoperative pain control. A prescription for this medication will be sent to your pharmacy. 2. Diclofenac sodium 75 mg: Take 1 tablet twice daily for the first 30 days postoperatively for pain and inflammation relief. This will be sent to your pharmacy with 1 refill. 3. Plavix 75 mg: Resume your normal regimen of Plavix for blood clot prevention. 4. Extra strength Tylenol 500 mg: Take 2 tablets every 6-8 hours as needed for additional supplemental pain control. Please purchase this medication. Pain Expect to be in a fair amount of pain after surgery. Remember, our goal is not to eliminate your pain, but to make it tolerable. It is a good idea to stay ahead of your pain by taking the medications you were prescribed once you get home. Typically, the pain starts improving 3-7 days after surgery. You should start weaning off the narcotic pain medication (oxycodone, hydrocodone, hydromorphone, morphine) as soon as your pain improves. Please call our office if your pain is not adequately controlled. Ice Ice your operative site at least 5 times a day for 15-30 minutes at a time. Make sure you have a thin cloth between the ice or cooling unit and your skin to prevent dwyer bite. This is especially important if you received a nerve block. Continue icing your operative site for the first 5-7 days after surgery, then as needed. Diet/Nausea/Vomiting Start by drinking clear liquids and eating crackers. If you can tolerate this, then you may resume your normal diet. If you feel nauseated or vomit, take Zofran/ondansetron (if prescribed). Please call our office if you have intractable nausea or vomiting, or, if after hours, you may go to the Emergency Room for help. Constipation Constipation is a common side effect of narcotic pain medication. If you have not had a bowel movement within 2 days after surgery, we recommend purchasing an over the counter laxative such as Milk of Magnesia, Dulcolax, or Miralax from a local pharmacy, and taking it as instructed. Call our clinic if any questions. Nerve block The anesthesia team sometimes places a nerve block to help with post-operative pain control. This results in significant numbness and inability to move the extremity. The nerve block usually wears off in 8-12 hours, but sometimes can last up to 24 hours. Please call our office if you are still unable to move your extremity after 24 hours, unless you received a pain pump to take home. Nerve blocks typically wear off quickly, so start taking pain medication as soon as you start feeling soreness near your surgical site. Weight bearing and Range of Motion. Do not bear any weight through your operative extremity immediately after surgery. If you had upper extremity surgery, do not lift anything with that arm. If you are in a knee brace, keep it locked in place until your follow-up. We will discuss your weight bearing, range of motion, and lifting restrictions in detail at your first post-operative appointment. Continuous Passive Motion (CPM) Machine If you were prescribed a CPM machine, it will start after your first post- operative appointment, at which time we will give you instructions on the range of motion settings and duration of treatment Physical therapy You will be given a prescription for physical therapy or occupational therapy at your first post-operative appointment. Typically, patients start therapy within 1 week of surgery Wound care and showering We will inspect your wound at your first post-operative visit, and may do a dressing change at that time. Most patients will be in a water-proof dressing that is removed 14 days after surgery. It is normal to see some dried blood on the dressing. Do not remove your dressing, paper strips or sutures yourself unless you are given permission. Showering is allowed the day after surgery. Do not scrub or remove any dressings. The wound should not be submerged underwater (i.e. in a bathtub or pool) until 4 weeks after surgery YOHAN stockings If you were given white stockings, these are to be worn at all times except to shower (on both legs) for the first 2 weeks after surgery. Driving You may not drive while taking narcotic pain medication or while in a cast, splint, sling or brace. You, the patient, need to make the final determination about when you are safe to drive, however, the earliest you may consider driving after surgery is below: Hand/Wrist/Elbow Surgery: 3 days Shoulder Surgery: 2 weeks Hip,/Knee/Ankle Surgery: 4 weeks Fracture repair: 6 weeks Return to Work Your return to work depends on what surgery was done and what type of work you do. Please bring any paperwork your employer needs completed to your first post-operative visit. Also, bring a description of your job duties, as this helps us to understand what risks you may face at work. Travel Avoid long distance travel (greater than 1 hour) in airplanes and cars for the first 6 weeks after surgery. If you must travel, you need to have a Doppler ultrasound done before you travel to rule out a blood clot in your legs. Follow-up You should have a follow-up appointment already scheduled 1-2 days after surgery. If not, please contact our office to make this appointment before you leave the hospital. When to call the office It is normal to have swelling and bruising in the limb that was operated on. This will improve with time. It is also normal to have fevers for the first 2 days after surgery. Reasons you should call your doctor include: Uncontrolled pain; Nausea, vomiting, or constipation that does not improve with medication; Fevers over 101.5, chills, sweats; Drainage or bleeding from the wound; Foul odor; Spreading areas of redness; Any other concerns. Contact Information Please call Dr. Solares's office at [phone] with any concerns. Pending Studies at Discharge: No Stand-Alone Forms: [facility] Medications and DC Order Prescriptions: New tramadol 50 mg Tablet 50 - 100 mg PO Q4H MDD Max 6/day PRN (Reason: Post op pain control) Qty: 28 0RF diclofenac sodium 75 mg tablet,delayed release (DR/EC) 75 mg PO BID 30 Days Qty: 60 1RF ondansetron 4 mg tablet,disintegrating 4 mg PO Q8H PRN (Reason: nausea and vomiting) 4 Days Qty: 14 0RF Continued glucosamine-chondroitin [Osteo Bi-Flex] 250-200 mg tablet 1 tab PO BID Rx Instructions: give after food/meal Prolia 60 mg/mL syringe 60 mg SQ Q6MO Qty: 1 1RF nystatin-triamcinolone 100,000-0.1 unit/g-% cream See Rx Instructions TOP TID PRN (Reason: chronic vulvitis ) Qty: 30 2RF Rx Instructions: 1g topically to effected area TID PRN ergocalciferol (vitamin D2) 1,250 mcg (50,000 unit) capsule 50,000 unit PO WEEKLY Qty: 12 3RF clopidogrel [Plavix] 75 mg tablet 75 mg PO PM Qty: 90 3RF Centrum Silver Women 8 mg iron-400 mcg-300 mcg tablet 1 tab PO QAM tamoxifen 20 mg tablet 20 mg PO QAM Zoryve 0.3 % foam 1 applic topical UD ascorbic acid (vitamin C) 1,000 mg capsule 1 g PO QPM latanoprost 0.005 % Drops 1 drp OPHTHALMIC (EYE) PM Rx Instructions: left eye acetaminophen 500 mg capsule 1,000 mg PO DIRECTED PRN (Reason: Pain) Rx Instructions: per Dr Rubalcava (pain management) hydrocortisone acetate [Anusol-HC] 25 mg suppository 25 mg TN DAILY PRN (Reason: Hemorrhoids) omeprazole 20 mg capsule,delayed release(DR/EC) 20 mg PO QAM Discharge Orders: Discharge Order (Routine); Ordered 04/27/25 Ordered By: James Cortez Admission Data Admit Date/Time: 04/26/25 09:34 Attending Provider: Christopher Solares Admit Provider: Christopher Solares Primary Care Provider: Tash Del Rio Other Providers: [facility],Home Healthcare
[2025-04-29] MEDS ORDERED: Scopolamine REMOVE TRANSDERM PATCH ONE (08:00)
[2025-05-02] MEDS ORDERED: ERGOCALCIFEROL 1250 MCG (50,000 UNITS) CAP PO SCH (09:00)
== END 2025-04-27 12:13 | disposition home health service (06) | DRG 470 ==
LOC: ASU 05:55 → INTOOBSV 09:34 → 3E 09:34